=== PATIENT | female | born 1950 | race African-American/Black ===

== ENCOUNTER 2016-09-25 12:32 | Observation (INO) ==
--- NOTE | 2016-09-25 13:10 | Diag Imaging Result Doc PS360 ---
EXAM: HEAD W/O CONTRAST INDICATION: ams COMPARISON: None. FINDINGS: There is no definite acute infarct given the limited sensitivity of CT versus MRI. There is no discrete intracranial mass, mass effect, or intracranial hemorrhage. The surrounding soft tissues and bony structures are essentially unremarkable. IMPRESSION: No evidence of acute intracranial pathology. Electronically signed by Aravind Schneider 09/25/2016 1:08 PM
--- NOTE | 2016-09-25 13:35 | Diag Imaging Result Doc PS360 ---
EXAM: CHEST-2 VIEWS INDICATION: ams TECHNIQUE: 2 views COMPARISON: 03/04/2015 FINDINGS: There is elevation of the left hemidiaphragm similar to previous studies. The lungs are grossly clear. There is no discrete pleural fluid collection or pneumothorax. The cardiomediastinal silhouette and central vasculature are grossly unremarkable. IMPRESSION: No evidence of acute pathology by plain radiograph. Electronically signed by Aravind Schneider 09/25/2016 1:33 PM
[2016-09-25 13:43] LABS: MANUAL DIFF NEEDED? NO
[2016-09-25 13:46] LABS: BASO% 0.8 % (0.0-0.8); EOS# 0.08 X1000 (0.0-0.7); EOS% 1.6 % (0.0-10.0); HEMOGLOBIN 11.9 g/dL (12.0-16.0); LYMPH% 36.8 % (20.5-51.1); MCH 30.4 PG (27-31); MCHC 33.1 g/dL (33-37); MCV 91.8 FL (81-99); MONO% 10.2 % (1.7-9.3); MPV 9.4 FL (7.4-10.4); NEUT% 50.6 % (42.2-75.2); PLT 310 X1000 (130-400); RBC 3.92 XMIL (4.2-5.4)
[2016-09-25 13:54] LABS: INR 1.73; PROTIME 18.8 Seconds (9.2-11.7)
[2016-09-25 14:17] LABS: PTT 49.7 Seconds (22.0-36.0)
[2016-09-25 14:23] LABS: ALBUMIN 3.8 g/dL (3.5-5.0); POTASSIUM 3.9 mmol/L (3.5-5.1); TOTAL BILIRUBIN 0.28 mg/dL (0.20-1.00); TOTAL PROTEIN 6.6 g/dL (6.3-8.3)
[2016-09-25 15:32] LABS: URINE MICRO REVIEW NEEDED? NO; URINE SOURCE CATH
[2016-09-25 15:38] LABS: BILIRUBIN URINE NEGATIVE (NEGATIVE); BLOOD URINE NEGATIVE (NEGATIVE); COLOR STRAW; GLUCOSE URINE NEGATIVE (NEGATIVE); LEUKOCYTES URINE NEGATIVE (NEGATIVE); NITRITE URINE NEGATIVE (NEGATIVE); PH URINE 5.5; PROTEIN URINE NEGATIVE (NEGATIVE); SP GRAVITY URINE 1.006; TURBIDITY URINE CLEAR (CLEAR); UROBILINOGEN URINE NORMAL (NORMAL)
[2016-09-25 15:40] LABS: UR EPITHELIAL CELLS <10 /HPF (<10); URINE BACTERIA NEGATIVE /HPF; URINE RBC <10 /HPF (<10); URINE WBC <10 /HPF (<10)
--- NOTE | 2016-09-25 15:58 | PROVIDER DOCUMENTATION ---
This chart was entered by Franky Ma Scribe, acting as scribe for Anand Price MD. HPI-Neurological Disorder - General Stated Complaint: unresponsive Time Seen by Provider: 09/25/16 12:36 Source: EMS Unable to obtain history due to:: altered Allergies/Adverse Reactions: Patient Allergies Allergy/AdvReac Type Severity Reaction Status Date / Time azithromycin Allergy RASH Verified 07/22/14 17:42 Home Medications: Home Medication List Medication Instructions Recorded Confirmed Last Taken Type Esomeprazole [Nexium Packet] 40 mg PO PRN PRN 03/26/12 09/25/16 09/24/16 History Montelukast [Singulair] 10 mg PO DAILY 03/26/12 09/25/16 09/24/16 History Pioglitazone HCl/Metformin HCl 1 each PO BID 03/26/12 09/25/16 09/25/16 History [Actoplus Met 15 mg-500 mg Tab] Ranitidine HCl [Zantac] 300 mg PO PRN PRN 03/26/12 09/25/16 09/19/16 History SIMVAstatin [Zocor] 40 mg PO QHS 03/26/12 09/25/16 09/24/16 History Fexofenadine [Stefani] 180 mg PO DAILY #0 tablet 03/28/12 09/25/16 09/24/16 Rx Albuterol Sulfate [Ventolin] 5 mg IH Q4H PRN PRN 07/22/14 09/25/16 09/09/16 History Budesonide/Formoterol Fumarate 10.2 gm IH BID PRN PRN 07/22/14 09/25/16 History [Symbicort 160-4.5 Mcg Inhaler] Ergocalciferol (Vitamin D2) 50,000 unit PO BID 07/22/14 09/25/16 09/25/16 History [Vitamin D] Exenatide Microspheres [Bydureon] 2 mg SQ DIRECTED 07/22/14 09/25/16 History Olopatadine 0.2% Oph Solution 1 drop BOTH EYES DAILY 07/22/14 09/25/16 09/25/16 History [Pataday 0.2% Oph Solution] Rivaroxaban [Xarelto] 20 mg PO DAILY 07/22/14 09/25/16 09/24/16 History Spironolact/Hydrochlorothiazid 1 each PO DAILY 07/22/14 09/25/16 09/25/16 History [Aldactazide 25-25 Tablet] - History of Present Illness-Neuro Nature of Presenting Problem: pt presents to the ER after going unresponsive at [facility] while in the choir singing a solo. Stable VS per EMS. Had no vomiting, fever/chills, or chest pain prior to episode. Noted no facial droop, or focal weakness upon arrival but non verbal. She had no seizure type activity. Only looks at you when you call her name. Responds to verbal and noxious stimuli. Awake and back to base line when returns from CT scanner. Had similar episode months ago while just standing watching a parade. FSBS was [employer]. Pt with h/o pulmonary embolism--on xaralto and has not missed a dose. Severity: reports: moderate, severe Onset/Duration: reports: abrupt, just prior to arrival Timing: reports: improving Context: reports: found unresponsive by bystander Character of Altered Mental Status: reports: unresponsive New weakness or altered sensation location:: reports: none Cognitive Baseline: alert, oriented x3 Gait Baseline: walks without assistance Associated Symptoms: denies: dizziness, fever/chills, insomnia, diaphoretic, seizures, slurred speech, vomiting, vision changes Similar Symptoms Previously?: Yes Recently seen or treated by another doctor?: No Review of Systems - Adult - REVIEW OF SYSTEMS - ADULT ROS:: limited per condition Constitutional: denies: chills, fever Eyes: denies: decreased vision, blurred vision, double vision Ears, Nose, Mouth & Throat: reports: no symptoms reported Cardiovascular: denies: chest pain, palpitations Respiratory: denies: dyspnea on exertion, shortness of breath Gastrointestinal: denies: abdominal pain, nausea, vomiting Genitourinary: reports: no symptoms reported Musculoskeletal: reports: no symptoms reported Integumentary: reports: no symptoms reported Neurological: reports: other (unresponsive). denies: dizziness/vertigo, numbness, paresthesia, slurred speech Psychiatric: reports: no symptoms reported Endocrine: reports: no symptoms reported Hematologic/Lymphatic: reports: no symptoms reported Allergic/Immunologic: reports: no symptoms reported All Other Systems: Reviewed and Negative Past History - Adult - PAST MEDICAL HISTORY-ADULT Review of Records: reports: Old Records Reviewed, Nursing Assessment Review, Medications Reviewed Cardiovascular: reports: blood clots (PE), HTN Respiratory: reports: asthma Obstetrical/Gynecological: reports: other (breast ca) Endocrine/Immune: reports: Diabetes, thyroid disorder - PRIOR SURGERIES/PROCEDURES Surgical/Procedure History: reports: appendectomy, cholecystectomy, hysterectomy , , back/neck, other (mastectomy, breast biopsy) - IMMUNIZATION STATUS Childhood Immunizations: See Nurse Assessment Flu Vaccine: See Nurse Assessment - SOCIAL HISTORY Smoking: non-smoker Living Situation: family Physical Exam- Neurological - Physical Exam-Neuro Exam Limited by: Initial arrival to the ER, limited exam-unresponsive was sent to CT Initial Vital Signs Reviewed: Yes (initial VSS) General Appearance: appears well (when returned from CT--complete exam done), alert, no apparent distress Eye Exam: bilateral eye: normal inspection, PERRL, EOMI HENMT: normocephalic/atraumatic, moist mucous membranes, normal ENT inspection Head Injury: no evidence of injury. negative: ecchymosis, swelling, tenderness Neck: non-tender, full range of motion, supple. negative: carotid bruit, lymphadenopathy, meningismus Respiratory: chest non-tender, lungs clear, normal breath sounds Cardiovascular: normal peripheral pulses, regular rate, rhythm, no edema Abdominal Exam: non tender, soft, no organomegaly Lymphatic: no adenopathy. 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 Exam: normal hearing, normal speech, PERRL Motor/Sensory: no motor deficit, no sensory deficit Neurologic: agency sales director II-XII nml as tested, grossly normal, no motor/sensory deficits Integumentary: normal color, normal turgor, warm/dry Psych/Mental Status: normal mood/affect, oriented x 3 - Glascow Coma Scale Best Eye Response: (4) open spontaneously Best Verbal Response: (5) oriented Best Motor Response: (6) obeys commands (GCS-8, was 3, 1 and 4 upon arrival) Total Glascow Score: 15 Progress - PLAN OF CARE/RESULTS Progress/Plan/Lab Results: Vital Signs - 8 hr 09/25/16 13:01 Temperature 97.9 F Pulse Rate 76 Respiratory Rate 18 Blood Pressure 129/76 O2 Sat by Pulse Oximetry 100 Laboratory Results - last 24 hr 09/25/16 09/25/16 09/25/16 13:33 13:33 13:33 WBC 4.89 RBC 3.92 L Hgb 11.9 L Hct 36.0 L MCV 91.8 MCH 30.4 MCHC 33.1 RDW Std Deviation 13.0 Plt Count 310 MPV 9.4 Immature Gran % (Auto) 0.0 Neut % (Auto) 50.6 Lymph % (Auto) 36.8 Humphreys % (Auto) 10.2 H Eos % (Auto) 1.6 Baso % (Auto) 0.8 Immature Gran # (Auto) 0.00 Neut # (Auto) 2.47 Lymph # (Auto) 1.80 Humphreys # (Auto) 0.50 Eos # (Auto) 0.08 Baso # (Auto) 0.04 PT 18.8 H INR 1.73 PTT (Actin FS) 49.7 H Sodium 139 Potassium 3.9 Chloride 103 Carbon Dioxide 22 L Anion Gap 14 BUN 22 Creatinine 1.4 H Estimated GFR/1.73 m2 45 BUN/Creatinine Ratio 16 Glucose 89 Calculated Osmolality 280 Calcium 9.0 Total Bilirubin 0.28 AST 18 ALT 17 Alkaline Phosphatase 67 Creatine Kinase 127 Troponin T Total Protein 6.6 Albumin 3.8 Globulin 2.8 Albumin/Globulin Ratio 1.4 Urine Source Urine Color Urine Turbidity Urine pH Ur Specific [place] Urine Protein Ur Glucose (Stick) Ur Ketones (Stick) Urine Blood Urine Nitrite Urine Bilirubin Urobilinogen Dipstick Urine Leukocytes Urine WBC (Auto) Urine RBC (Auto) U Epithel Cells (Auto) Urine Bacteria (Auto) 09/25/16 09/25/16 13:33 15:26 WBC RBC Hgb Hct MCV MCH MCHC RDW Std Deviation Plt Count MPV Immature Gran % (Auto) Neut % (Auto) Lymph % (Auto) Humphreys % (Auto) Eos % (Auto) Baso % (Auto) Immature Gran # (Auto) Neut # (Auto) Lymph # (Auto) Humphreys # (Auto) Eos # (Auto) Baso # (Auto) PT INR PTT (Actin FS) Sodium Potassium Chloride Carbon Dioxide Anion Gap BUN Creatinine Estimated GFR/1.73 m2 BUN/Creatinine Ratio Glucose Calculated Osmolality Calcium Total Bilirubin AST ALT Alkaline Phosphatase Creatine Kinase Troponin T < 0.010 Total Protein Albumin Globulin Albumin/Globulin Ratio Urine Source CATH Urine Color STRAW Urine Turbidity CLEAR Urine pH 5.5 Ur Specific [place] 1.006 Urine Protein NEGATIVE Ur Glucose (Stick) NEGATIVE Ur Ketones (Stick) NEGATIVE Urine Blood NEGATIVE Urine Nitrite NEGATIVE Urine Bilirubin NEGATIVE Urobilinogen Dipstick NORMAL Urine Leukocytes NEGATIVE Urine WBC (Auto) <10 Urine RBC (Auto) <10 U Epithel Cells (Auto) <10 Urine Bacteria (Auto) NEGATIVE Orders Category Date Time Status CHEST-2 VIEWS [RAD] Stat Exams 09/25/16 12:50 Completed HEAD W/O CONTRAST [CT] Stat Exams 09/25/16 12:37 Completed CBC WITH ELECTRONIC DIFF [HEME] Stat Lab 09/25/16 13:33 Completed CK PROFILE [SP CHEM] Stat Lab 09/25/16 13:33 Completed COMPREHENSIVE METABOLIC PANEL [CHEM] Stat Lab 09/25/16 13:33 Completed PROTIME WITH INR [COAG] Stat Lab 09/25/16 13:33 Completed PTT [COAG] Stat Lab 09/25/16 13:33 Completed TROPONIN T Stat Lab 09/25/16 13:33 Completed UA [URINALYSIS] [URINALYSIS] Stat Lab 09/25/16 15:26 Completed EKG [EKG] Stat Ther 09/25/16 12:50 Ordered Transfer/Admit Order [TRANSFER] Routine Transfer 09/25/16 15:53 Ordered Result Diagrams: 09/25/16 13:33 09/25/16 13:33 - EKG 1 Rate: 66 Rhythm: NSR [place]: normal QRS: normal NM Interval: normal ST Wave: normal - XRAY 1 XRAY Study: Chest Impression: Abnormal XRAY Interpretation: left hemidiaphram - CONSULTS/PCP/HOSPITALIST Notification #1 *Consult/PCP/Hospitalist*: [place] Time Discussed: 15:44 Consult Disposition: Admit Departure - Departure Time of Disposition Decision: 15:45 DIAGNOSIS: Syncope Disposition: ADMITTED INPATIENT 09 Certified Medical Emergency: Emergent Condition: Stable Referrals and Follow-Ups: None,PCP [Clinical Support] - - Critical Care Note This patient required my direct & personal management of CC.: No This chart was documented by the indicated scribe, (Franky Ma, Scribe) and accurately reflects the services I performed and decisions made by me, Anand Price MD, as attested by the provider's signature.
[2016-09-25] MEDS ORDERED: ZANTAC PO PRN (17:27)
[2016-09-25] MEDS ORDERED: SYMBICORT 160/4.5 MICROGM INHALER INH PRN (17:27)
[2016-09-25] MEDS ORDERED: NS 1,000 ML IV SCH (17:30)
[2016-09-25] MEDS ORDERED: PROTONIX IV SCH (17:30)
[2016-09-25] MEDS ORDERED: SODIUM CHLORIDE 0.9% INJ SCH (17:30)
--- NOTE | 2016-09-25 18:10 | HISTORY AND PHYSICAL ---
CHIEF COMPLAINT: Passed out while singing in choir at [employer] around noon time. HISTORY OF PRESENT ILLNESS: She is a 66-year-old female who was brought after she passed out while she was singing in the choir. It last about 15-20 minutes. I did talk to the witnesses. She has been suffering from vertigo, taking meclizine from the family physician, Dr. Day. She was brought in by ambulance to the emergency room. At the time of admission she is confused. There was no seizure activity. No tongue bite. No incontinence of urine or bowels. Patient was neurologically stable. CT head was negative. She is slightly dehydrated. Basically, admitted to the hospital for syncope which was witnessed. PAST MEDICAL HISTORY: 1. Chronic vertigo. 2. Abnormal chest x-ray with elevation of left hemidiaphragm. 3. Type 2 diabetes. 4. History of breast cancer, in remission since 1997. 5. Allergic rhinitis/asthmatic bronchitis. 6. Hyperlipidemia. 7. History of pulmonary embolism. 8. Vitamin D deficiency. PAST SURGICAL HISTORY: Bilateral breast reduction, lumpectomy in 1997, cervical fusion, hysterectomy, appendectomy, cholecystectomy, tonsillectomy, lumbar spine surgery in 2010. MEDICATIONS: Reported Actoplus Met 15/500 p.o. b.i.d., Prilosec 40 daily, Zantac at bedtime, Singulair 10 daily, Zocor 40 daily, Stefani 180 daily, Pataday 1 drop both eyes daily, Symbicort 160/4.5 b.i.d., Ventolin as needed, Vitamin D 53659 once a week, Xarelto 20 mg daily, Aldactazide 25/25 daily, Bydureon subcutaneously 2 mg once a week. ALLERGIES: Reported, Zithromax, angiotensin receptor blockers due to angioedema in 2011. IMMUNIZATIONS: Pneumonia vaccine 2013. HEALTH MAINTENANCE: Mammography last year. Colonoscopy by Dr. Carver. SOCIAL HISTORY: She lives in [place]. Disabled. 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 No smoking. No alcohol. FAMILY HISTORY: Mom of breast cancer. Brother and father had prostate cancer. Sister had breast cancer. REVIEW OF SYSTEMS: HEENT: No headache. No vision problem. Dizziness/ vertigo. No earache. No sore throat. Neck: No chronic neck pain, with C-spine fusion. No goiters. No carotid bruits. Cardiopulmonary: No chest pain, shortness of breath, PND, orthopnea. GI: History of acid reflux symptoms. No bleeding per rectum. Appendix and gallbladder were taken out. : No history of hesitancy, frequency, hematuria, dysuria. No swelling of legs. No joint pains. Chronic neck back pain. No claudication symptoms. Neurologic: No seizures, dizziness, vertigo present. No weakness noted. PHYSICAL EXAMINATION: VITAL SIGNS: Afebrile, 5 feet, 160 pounds, 100% oxygen on 2 L, pulse is 76. Hemodynamics were stable. HEENT: Atraumatic, normocephalic. Pupils equal, reactive to light. No anemia. No cyanosis. No jaundice. No nystagmus noted. Tongue is in midline. Facial nerve is intact. NECK: Supple. No neck rigidity. JVD is not elevated. No carotid bruit. No goiter. CHEST: Bilateral air entry. HEART: Sounds are regular. No murmurs. BREAST: Exam deferred. ABDOMEN: Belly is soft, nontender. Good bowel sounds. No masses. No peritonitis. RECTAL: Exam deferred. EXTREMITIES: No peripheral edema, cyanosis, clubbing. No signs of gangrene. NEUROLOGIC: Alert and oriented to time, place, and person. Motor 5/5 in all extremities. Sensory is intact. No nystagmus. Cranial nerves intact. No cerebellar signs. No obvious deficits noted. INVESTIGATIONS: Chest x-ray: Elevation of the left hemidiaphragm which is chronic. No evidence of acute pathology noted. Prior C-spine surgery noted. CT head: No evidence of acute intracranial pathology. EKG is pending. CBC: White cell count 4.8, hematocrit 36, platelets 310,000. PT 18, INR 1.7. SMA 7: Creatinine is 1.4. Liver function tests were normal. Cardiac enzymes were normal. Urinalysis: No blood, clear. ASSESSMENT AND PLAN: This is a 66-year-old female admitted to the hospital with syncope for 15 minutes, documented. PLAN: 1. Rule out carotid disease. Continue manager monitoring. Rule out cardiac arrhythmia. Check EEG in the morning. Orthostatic blood pressure. IV fluids. 2. Type 2 diabetes. On Actos plus metformin, on sliding scale with insulin coverage. 3. Vitamin D deficiency, once a week. 4. History of abnormal x-ray with elevation of left hemidiaphragm. Continue on IV Protonix. 5. Hyperlipidemia. On Zocor. 6. History of pulmonary embolism. On Xarelto. 7. 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 8. Chronic allergies with asthmatic bronchitis. Continue on Stefani, Singulair , and inhalers. 9. Dr. Day is going to follow up. Discussed with the patient and the family members the plan of care. cc: Denver [place] MD MTDD
[2016-09-25] MEDS ORDERED: ZOCOR PO SCH (21:00)
[2016-09-25] MEDS ORDERED: GLUCOPHAGE PO SCH (21:00)
[2016-09-25] MEDS ORDERED: ACTOS PO SCH (21:00)
[2016-09-25] MEDS ORDERED: VITAMIN D PO SCH (21:00)
[2016-09-25 23:54] VITALS: BP 127/64
[2016-09-26] MEDS: HUMALOG SUBQ SCH ×2 (01:33→09:28)
--- NOTE | 2016-09-26 07:07 | EKG Report ---
Test Performed on : 09/26/2016 06:33:57 AM Test Reason : cp Blood Pressure : / mmHG Vent. Rate : 053 BPM Atrial Rate : 053 BPM P-R Int : 228 ms QRS Dur : 062 ms QT Int : 462 ms P-R-T Axes : 048 -13 052 degrees QTc Int : 433 ms Sinus bradycardia. with 1st degree AV block. Otherwise normal ECG When compared with ECG of 25-SEP-2016 12:49, (Unconfirmed) No significant change was found Confirmed by Giuseppe DIOR, Charlie Monae ([id number]) on 09/26/2016 7:14:44 AM
--- NOTE | 2016-09-26 07:53 | EKG Report ---
Test Performed on : 09/25/2016 12:49:51 PM Test Reason : No Order in [place] Blood Pressure : / mmHG Vent. Rate : 066 BPM Atrial Rate : 066 BPM P-R Int : 208 ms QRS Dur : 058 ms QT Int : 436 ms P-R-T Axes : 063 -12 023 degrees QTc Int : 457 ms Normal sinus rhythm. Low voltage QRS Borderline ECG When compared with ECG of 07-DEC-2011 12:10, No significant change was found Unconfirmed Result
[2016-09-26 07:55] LABS: HEMATOCRIT 34.6 % (37.0-47.0); HEMOGLOBIN 11.3 g/dL (12.0-16.0); MCH 30.7 PG (27-31); MCHC 32.7 g/dL (33-37); RBC 3.68 XMIL (4.2-5.4)
[2016-09-26 08:20] LABS: CALCIUM 8.8 mg/dL (8.8-10.2); POTASSIUM 4.5 mmol/L (3.5-5.1)
[2016-09-26 08:28] LABS: HEMOGLOBIN A1C 5.7 % (4.8-6.0)
[2016-09-26] MEDS ORDERED: XARELTO PO SCH (09:00)
[2016-09-26] MEDS ORDERED: ALLEGRA PO SCH (09:00)
[2016-09-26] MEDS ORDERED: SINGULAIR PO SCH (09:00)
[2016-09-26] MEDS ORDERED: ALDACTAZIDE 25/25 PO SCH (09:00)
[2016-09-26] MEDS ORDERED: PATADAY 0.2% OPH SOLUTION BOTH EYES SCH (09:00)
--- NOTE | 2016-09-26 09:23 | PROGRESS NOTE ---
DATE: 09/26/2016 SUBJECTIVE: Patient relates she was singing a solo in the [place] [employer] yesterday when she had a syncopal event. Apparently, she had a dropout spell where she did not fall and hurt herself but some latter day members caught her before she fell completely. She laid on the floor for about 20 minutes, according to her report. The patient has had a couple of other episodes. She is followed by Dr. 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 The patient also has been followed by Dr. Aravind Chowdhury, neurosurgery, regarding bulging disks in her neck that are giving her left upper extremity radiculopathy, with plans being made for surgery to correct this. OBJECTIVE: Vital Signs: Afebrile, pulse 58, blood pressure 127/64, O2 saturation on room air 97%. Brought telemetry strips which show an episode of third-degree heart block at 7:53 this morning with symptomatology but normal blood pressures at that time. CV: RRR. Lungs: CTA currently. Extremities: No edema. Neurologic: Cranial nerves are intact. No focal deficits. Lab Data: Shows white count of 5.17, hemoglobin 11.3, platelets 284,000. INR 1.73, PTT 49.7. Sodium 140, potassium 4.5, chloride 106, CO2 23, BUN 22, creatinine 1.3, glucose 89, calcium 8.8. Troponin level less than 0.01 x2. ProBNP 282. Urinalysis negative for blood on dipstick and otherwise negative. CT head done yesterday afternoon showed negative. Chest x-ray shows chronic elevation of the left hemidiaphragm, otherwise negative. ASSESSMENT: 1. Syncope, thought related to #2. 2. Third-degree heart block. 3. History of pulmonary thromboembolisms, on chronic Xarelto therapy. 4. Left upper extremity radiculopathy with cervical bulging disk. Followed by Dr. Aravind Chowdhury. 5. Chronic vertigo. 6. History of breast cancer, remote. 7. Type 2 diabetes mellitus. 8. Hyperlipidemia. 9. Vitamin D deficiency. PLAN: At this time, we will consult with cardiology as she is followed by Dr. Cuevas out of [place] [facility]. We will monitor her blood sugars. Continue IVF and follow the patient clinically. She is also to have an EEG and carotid Dopplers but I believe her problem is going to be the third-degree heart block and she may require pacemaker placement. cc: Manny Day MD
[2016-09-26] MEDS ORDERED: ZOFRAN IV PRN (10:58)
--- NOTE | 2016-09-26 11:46 | CONSULTATION ---
DATE OF CONSULTATION: 09/26/2016 REASON FOR CONSULTATION: Cardiology was consulted for abnormal telemetry and syncope. HISTORY: Ms. Mynor Beckwith is a 66-year-old -[place] lady who was brought in by EMT. She passed out while singing in the choir. It lasted for about 15-20 minutes. It was witnessed syncope. Brought by ambulance to the emergency room. Electrocardiogram in the emergency room revealed normal sinus rhythm with 1st-degree AV block. Subsequently, on telemetry, she had AV dissociation with heart rate in the 30s on 2 to 3 occasions. As far as history is concerned, she does not complain of chest pain or palpitations. She has had syncope at least once a month and, over the last 6 months, she has had 5 episodes of joshua syncope. She is not on any medications which would decrease her heart rate. She had an EEG done. CT scan was negative. EEG was unremarkable, and repeat electrocardiograms revealed only normal sinus rhythm with 1st-degree AV block. She is routinely followed by Dr. Colbert in our office at [facility]. Her stress test was unremarkable a couple of years back. An echocardiogram revealed preserved left ventricular systolic function. REVIEW OF SYSTEMS: A 14-point review of systems was done GI System: There is no history of nausea. There is no history of hematemesis or melena. Central Nervous System: No focal weakness to suggest a CVA or TIA. Genitourinary System: There is no dysuria or hematuria. Respiratory System: There is no history of cough, expectoration, hemoptysis. There is no history of fevers or chills. PAST MEDICAL HISTORY: 1. Vertigo. 2. Syncope. 3. Diabetes. 4. History of breast cancer, in remission since 1997. 5. Hyperlipidemia. 6. History of pulmonary embolism. 7. Bilateral breast reduction. 8. Lumpectomy. 9. Cervical fusion. 10. Hysterectomy. 11. Appendectomy. 12. Cholecystectomy. 13. Tonsillectomy. 14. Lumbar spine surgery in 2000. HOME MEDICATIONS: 1. Active plus Met 15/500 p.o. b.i.d. 2. Prilosec 40. 3. Zantac. 4. Zocor 40. 5. Pataday eye drops. 6. Symbicort 164.5 twice daily. 7. Ventolin as needed. 8. Vitamin D. 9. Xarelto 20. 10. Aldactazide 25/25. 11. subcutaneously 2 mg. ALLERGIES: She is allergic to Zithromax, lisinopril causing angioedema in 2011. SOCIAL HISTORY: She does not smoke. There is no history of alcohol abuse. PHYSICAL EXAMINATION: Vital Signs: Blood pressure was 127/64. Neck: Normal jugular venous pressure. There is no thyromegaly. No carotid bruit. Heart: First and second heart sounds heard. There is no S3 gallop. Respiratory System: Normal air entry. There are no crepitations or rhonchi. Abdomen: Soft, nontender. There was no guarding or rigidity. Bowel sounds were heard. Central nervous system: Alert. She was moving all 4 extremities. Detailed central nervous system examination not performed. LABORATORY EXAMINATION: Sodium 140, potassium 4.5. BUN 22, creatinine 1.3. Cardiac enzymes were negative. Hemoglobin 11.3, hematocrit 34.6. Hemoglobin 11.3, hematocrit 34, platelet count 284,000. White count 5. DIAGNOSTICS: CT scan of the head was unremarkable. EEG and carotid Dopplers reports were unremarkable. ASSESSMENT AND PLAN: Ms. Prabha Beckwith is a 66-year-old -[place] lady with history of 1. Vertigo. 2. Diabetes. 3. Pulmonary embolism in the past. 4. Asthma. 5. Hypertension. She is admitted with syncope while [facility] [employer] which was witnessed, and her blood sugars at that time were normal. She has had 5 episodes of syncope in the last 6 months which she states her electrocardiograms were normal, however, telemetry revealed AV dissociation with heart rate in the 30s that was associated with symptoms of dizziness. Given this, I recommended that she be transferred to [facility] for consideration of a permanent pacemaker. The patient is willing to be transferred and undergo the procedure. Risks and benefits were explained. For hypertension, blood pressure is stable. Diabetes: Blood sugars are under control. I have not made any changes. Thank you for the consult. cc: MD Manny Jaquez MD
--- NOTE | 2016-09-26 14:54 | EKG Report ---
Test Performed on : 09/26/2016 10:52:14 AM Test Reason : 3rd degree heartblock Blood Pressure : / mmHG Vent. Rate : 052 BPM Atrial Rate : 052 BPM P-R Int : 226 ms QRS Dur : 066 ms QT Int : 456 ms P-R-T Axes : 035 -07 034 degrees QTc Int : 424 ms Sinus bradycardia. with 1st degree AV block. Otherwise normal ECG When compared with ECG of 26-SEP-2016 06:33, No significant change was found Confirmed by Giuseppe DIOR, Charlie Monae ([id number]) on 09/27/2016 6:20:34 PM
--- NOTE | 2016-09-26 15:32 | ECHO REPORT ---
ORDER DATE: 09/26/2016 ECHOCARDIOGRAM: MEASUREMENTS: Left ventricular end-diastolic diameter 4.1, end systolic diameter 2.3, septal thickness 1.3, posterior wall thickness 1.2, left atrium 3.2, aortic root 3.3. SUMMARY: 1. Fair quality study. 2. Aortic valve is trileaflet and opens normally on 2-dimensional images. Mitral, tricuspid, and pulmonic valves are without structural abnormality with very mild mitral regurgitation, very mild tricuspid regurgitation, and mild pulmonic insufficiency. Estimated systolic PA pressure by Doppler is 35 to 40 mmHg. Aortic root is normal in size. 3. Normal left ventricular chamber size with mild concentric left hypertrophy suggested. Estimated left ventricular ejection fraction appears to be at least 60%. No regional wall motion abnormalities are evident. Mild left atrial enlargement is suggested on 2-D images. Right atrium and right ventricle are normal in size with normal right ventricular systolic function. 4. No pericardial effusion. 5. Inferior vena cava not well demonstrated. CONCLUSIONS: 1. Very mild mitral regurgitation. 2. Very mild tricuspid regurgitation with estimated systolic PA pressure 35-40 mmHg. 3. Mild concentric left hypertrophy with estimated left ventricular ejection fraction at least 60%. 4. Mild left atrial enlargement. cc: MD Marzena Petersen PA Stephen W. Harbin, MD
--- NOTE | 2016-09-26 17:08 | EEG REPORT ---
DATE: 09/26/2016 BASIC INFORMATION: REFERRING PHYSICIAN: Dr. Houston. EEG NUMBER: [id number]. CERTIFIED FRAUD EXAMINER: Germania Nazario. BACKGROUND INFORMATION: Technique: A digitally recorded EEG is obtained with 1 additional channel for EKG. HISTORY OF PRESENT ILLNESS: A 66-year-old female admitted after a witnessed syncopal event. An EEG is ordered to detect evidence of possible seizures. MEDICATIONS: Include Actos, Aldactazide, Stefani, Glucophage, insulin, Protonix , Symbicort, Singulair, Xarelto, Zantac, Zocor. EEG FINDINGS: A well-formed 11 Hz posterior dominant alpha rhythm is seen symmetrically in the occipital regions and attenuates with eye opening. At maximal alertness the anterior background consists of alpha and beta frequencies. No focal slowing is noted. No epileptiform discharges and no seizures are noted. Hyperventilation was not performed. Photic stimulation induced a normal photic driving response at multiple frequencies. The patient has periods of drowsiness but stage II sleep is not seen. The EKG demonstrates irregular R-R interval with 2 + second pauses at the end of the study. IMPRESSION AND RECOMMENDATIONS: Normal awake and drowsy routine EEG. Of note, a normal EEG does not rule out epilepsy. Of note, the EKG demonstrated irregular R-R interval and 2+ second pauses at the end of the study. Clinical correlation is advised. cc: MD Denver Wick MD Stephen W. Harbin, MD MTDD
--- NOTE | 2016-09-28 08:39 | Carotid Study ---
DATE: 09/26/2016 PROCEDURE: Carotid duplex imaging. REFERRING PHYSICIAN: Denver Houston MD. INTERPRETING PHYSICIAN: Kev Moore MD. TECH: [place]. INDICATIONS: Syncope. OBSERVED DATA RIGHT LEFT Brachial Blood Pressure Carotid Pulse Bruits: Carotid/Sub DIAGRAM OF ULTRASOUND IMAGING R L RIGHT INT EXT INT EXT LEFT Sherif (cm/s) Sherif (cm/s) Subclavian 77/0 Subclavian 80/0 CCA Proximal 43/11 CCA Proximal 59/9 CCA Distal 51/15 CCA Distal 51/12 Bulb 51/15 Bulb 37/10 ICA Proximal 35/10 ICA Proximal 50/16 ICA Mid 34/13 ICA Mid 40/13 ICA Distal 60/18 ICA Distal 71/29 ECA 37/5 ECA 36/3 Vertebral 33/9 Vertebral 63/24 ICA/CCA Ratio 1.2 ICA/CCA Ratio 1.2 % Stenosis 0-39 % Stenosis 0-39 FINDINGS: Very minimal atherosclerotic disease in the carotid systems bilaterally. No ulcerative plaques or significant stenoses are present. There is antegrade vertebral flow bilaterally. This is an unremarkable carotid imaging study. cc: MD Denver Padron MD Stephen W. Harbin, MD
[2016-10-02] MEDS ORDERED: VITAMIN D PO SCH (09:00)
== END 2016-09-26 13:40 | disposition short-term general hospital (02) ==
LOC: SUPCPDRO → ED 12:32 → 4N 16:08 → INTOOBSV 16:08
PROVIDERS: ADMIT Family Medicine; ATTEND Family Medicine

== ENCOUNTER 2018-07-10 15:31 | Inpatient (IN) ==
--- NOTE | 2018-07-10 15:57 | Diag Imaging Result Doc PS360 ---
EXAM: CHEST-2 VIEWS HISTORY: sob TECHNIQUE: Chest two views COMPARISON: 04/25/2017 FINDINGS: The lungs are well expanded. The heart is not enlarged. The vessels are not distended. There are no infiltrates. No pleural effusions. The left hemidiaphragm is elevated. IMPRESSION: No acute abnormality. Electronically signed by Andre Woodard 07/10/2018 3:55 PM
[2018-07-10] MEDS ORDERED: DUONEB (A & A) INH ONE ×2 (16:34→18:41)
[2018-07-10] MEDS ORDERED: SOLU-MEDROL IV ONE (16:34)
[2018-07-10 16:54] LABS: BASO# 0.02 X1000 (0.0-0.2); BASO% 0.4 % (0.0-0.8); EOS# 0.07 X1000 (0.0-0.7); EOS% 1.3 % (0.0-10.0); HEMATOCRIT 37.8 % (37.0-47.0); HEMOGLOBIN 12.2 g/dL (12.0-16.0); LYMPH# 1.83 X1000 (1.2-3.4); LYMPH% 33.8 % (20.5-51.1); MCH 28.4 PG (27-31); MCHC 32.3 g/dL (33-37); MCV 87.9 FL (81-99); MONO# 0.46 X1000 (0.11-0.59); MONO% 8.5 % (1.7-9.3); MPV 9.7 FL (7.4-10.4); NEUT# 3.03 X1000 (1.4-6.5); PLT 327 X1000 (130-400); WBC 5.41 X1000 (4.8-10.8)
[2018-07-10 17:12] LABS: ALB/GLOB RATIO 1.4; ALBUMIN 3.9 g/dL (3.5-5.0); C REACTIVE PROT QUANT 1.89 mg/L (0.00-5.00); CALCIUM 9.3 mg/dL (8.8-10.2); CREATININE 1.4 mg/dL (0.5-0.9); POTASSIUM 4.4 mmol/L (3.5-5.1); TOTAL BILIRUBIN 0.18 mg/dL (0.20-1.00); TOTAL PROTEIN 6.6 g/dL (6.3-8.3)
[2018-07-10] MEDS ORDERED: DOXYCYCLINE PO ONE (18:40)
--- NOTE | 2018-07-10 18:46 | PROVIDER DOCUMENTATION ---
This chart was entered by Adal Ortiz Scribe, acting as scribe for Bao Fuentes MD. HPI-Respiratory General - General Chief Complaint: Cough Stated Complaint: SOB --DR WILLIAMSON STAFF BROUGHT PT DOWN Time Seen by Provider: 07/10/18 16:16 Source: patient Allergies/Adverse Reactions: Patient Allergies Allergy/AdvReac Type Severity Reaction Status Date / Time azithromycin Allergy Intermediate RASH Verified 07/10/18 16:05 [From Zithromax Z-Dereck] latex Allergy Intermediate RASH Verified 07/10/18 16:05 BANDAIDES Allergy RASH Uncoded 07/10/18 16:05 Home Medications: Home Medication List Medication Instructions Recorded Confirmed Last Taken Type Montelukast [Singulair] 10 mg PO DAILY 03/26/12 05/31/17 05/30/17 09:00 History Fexofenadine [Stefani] 180 mg PO DAILY #0 tablet 03/28/12 05/31/17 05/30/17 09:00 Rx Budesonide/Formoterol Fumarate 2 puff IH DAILY 07/22/14 05/31/17 05/30/17 09:00 History [Symbicort 160-4.5 Mcg Inhaler] Ergocalciferol (Vitamin D2) 50,000 unit PO DIRECTED 07/22/14 05/31/17 05/29/17 09:00 History [Vitamin D] Olopatadine 0.2% Oph Solution 1 drop BOTH EYES BID 07/22/14 05/31/17 05/29/17 21:00 History [Pataday 0.2% Oph Solution] Spironolact/Hydrochlorothiazid 1 each PO DAILY 07/22/14 05/31/17 05/30/17 09:00 History [Aldactazide 25-25 Tablet] Albuterol Sulfate [Albuterol 2 puff IH Q4H PRN PRN 09/26/16 05/31/17 05/30/17 09:00 History Sulfate Hfa] Dulaglutide [Trulicity] 0.75 mg SQ DIRECTED 09/26/16 05/31/17 05/29/17 09:00 History Esomeprazole [Nexium] 40 mg PO DAILY 09/26/16 05/31/17 05/30/17 09:00 History Losartan Potassium 100 mg PO DAILY 09/26/16 05/31/17 05/30/17 09:00 History Meclizine HCl [Antivert] 25 mg PO TID PRN 09/26/16 05/31/17 05/29/17 09:00 History Metformin HCl [Metformin HCl ER] 850 mg PO DAILY 09/26/16 05/31/17 05/30/17 09:00 History [place]-3/Dha/Epa/Fish Oil [[place] 3 1 cap PO DAILY 09/26/16 05/31/17 05/30/17 09: 00 History 500 Softgel] Oxybutynin E.r. [Ditropan Xl] 5 mg PO QHS 09/26/16 05/31/17 05/29/17 21:00 History Rivaroxaban [Xarelto] 20 mg PO DAILY 09/26/16 05/29/17 05/28/17 History - History of Present Illness-Resp Nature of Presenting Problem: Pt is a 67 y/o F who c/o fof a cough and SOB for 5 days. SHe reports a yellow productive cough. Denies fever and chest pain. She reports a hx of PE. Quality of Pain: reports: none Severity in ED: reports: moderate Onset/Duration: reports: 5 days ago Timing: reports: still present Exposure: reports: unknown cause Cough Quality/Degree: reports: productive cough Episode Frequency: no prior episodes Current Respiratory Medication Therapy: Initiated none Modifying Factors: improves with: nothing Associated Symptoms: reports: cough, shortness of breath. denies: fever/chills, heart racing, hyperventilating, lightheadedness, nasal congestion, nasal drainage, sore throat, wheezing Similar Symptoms Previously?: No Recently seen or treated by another doctor?: No Review of Systems - Adult - REVIEW OF SYSTEMS - ADULT Constitutional: denies: chills, fever Eyes: reports: no symptoms reported Ears, Nose, Mouth & Throat: reports: no symptoms reported Cardiovascular: denies: chest pain, edema, palpitations Respiratory: reports: cough, shortness of breath. denies: wheezing Gastrointestinal: denies: abdominal pain, nausea, vomiting Genitourinary: denies: dysuria, discharge Musculoskeletal: denies: back pain, neck pain Integumentary: reports: no symptoms reported Neurological: reports: no symptoms reported Psychiatric: reports: no symptoms reported Endocrine: reports: no symptoms reported Hematologic/Lymphatic: reports: no symptoms reported Allergic/Immunologic: reports: no symptoms reported All Other Systems: Reviewed and Negative Past History - Adult - PAST MEDICAL HISTORY-ADULT Review of Records: reports: Old Records Reviewed, Nursing Assessment Review, Medications Reviewed Cardiovascular: reports: blood clots (PE), HTN Respiratory: reports: asthma Obstetrical/Gynecological: reports: other (breast ca) Endocrine/Immune: reports: Diabetes, thyroid disorder - PRIOR SURGERIES/PROCEDURES Surgical/Procedure History: reports: appendectomy, cholecystectomy, hysterectomy , , back/neck, other (mastectomy, breast biopsy) - IMMUNIZATION STATUS Childhood Immunizations: See Nurse Assessment Flu Vaccine: See Nurse Assessment - SOCIAL HISTORY Smoking: non-smoker Living Situation: family Physical Exam-General - PHYSICAL EXAM-ADULT Initial Vital Signs Reviewed: Yes - CONSTITUTIONAL General Appearance: appears well, alert, no apparent distress - EYES Eyes: PERRL/EOMI, pink conjunctivae - HEAD, EARS, NOSE, MOUTH & THROAT HENMT: moist mucous membranes, normal ENT inspection, pharynx normal - NECK Neck: non-tender, full range of motion, supple, normal inspection - RESPIRATORY Respiratory: accessory muscle use, increased rate. negative: normal breath sounds (shallow breath sounds, poor air entry) - CARDIOVASCULAR Cardiovascular: normal peripheral pulses, regular rate, rhythm, no edema - GASTROINTESTINAL (ABDOMEN) Abdominal Exam: normal bowel sounds, non tender, soft - MUSCULOSKELETAL Back Exam: normal inspection, no CVA tenderness, no vertebral tenderness Extremity: normal range of motion, non-tender, normal gait, normal inspection, no pedal edema - SKIN Integumentary: normal color, normal turgor, warm/dry - NEUROLOGIC Neurologic: grossly normal, no motor/sensory deficits - PSYCHIATRIC Psych/Mental Status: normal mood/affect, normal thought content, normal thought process, oriented x 3 - HEART Score HEART Score: History: Slightly Suspicious HEART Score: ECG: Normal HEART Score: Age: > or = 65 Years HEART Score: Risk Factors for Atherosclerotic Disease: 1 or 2 Risk Factors HEART Score: Troponin: < or = Normal Limit (3) Total HEART Score:: 3 Progress - PLAN OF CARE/RESULTS Progress/Plan/Lab Results: Vital Signs - 8 hr 07/10/18 15:33 07/10/18 16:55 Temperature 98.1 F Pulse Rate 81 60 Respiratory Rate 24 42 H Blood Pressure 152/79 O2 Sat by Pulse Oximetry 100 98 Laboratory Results - last 24 hr 07/10/18 07/10/18 07/10/18 16:15 16:15 16:15 WBC 5.41 RBC 4.30 Hgb 12.2 Hct 37.8 MCV 87.9 MCH 28.4 MCHC 32.3 L RDW Std Deviation 13.0 Plt Count 327 MPV 9.7 Immature Gran % (Auto) 0.0 Neut % (Auto) 56.0 Lymph % (Auto) 33.8 [place] % (Auto) 8.5 Eos % (Auto) 1.3 Baso % (Auto) 0.4 Immature Gran # (Auto) 0.00 Neut # (Auto) 3.03 Lymph # (Auto) 1.83 [place] # (Auto) 0.46 Eos # (Auto) 0.07 Baso # (Auto) 0.02 D-Dimer, Quantitative < 0.27 Sodium 137 Potassium 4.4 Chloride 100 Carbon Dioxide 25 Anion Gap 12 BUN 22 Creatinine 1.4 H Estimated GFR/1.73 m2 45 BUN/Creatinine Ratio 16 Glucose 97 Calculated Osmolality 277 Calcium 9.3 Total Bilirubin 0.18 L AST 21 ALT 10 Alkaline Phosphatase 73 Creatine Kinase 115 Troponin T C-Reactive Prot, Quant 1.89 Total Protein 6.6 Albumin 3.9 Globulin 2.7 Albumin/Globulin Ratio 1.4 07/10/18 16:15 WBC RBC Hgb Hct MCV MCH MCHC RDW Std Deviation Plt Count MPV Immature Gran % (Auto) Neut % (Auto) Lymph % (Auto) [place] % (Auto) Eos % (Auto) Baso % (Auto) Immature Gran # (Auto) Neut # (Auto) Lymph # (Auto) [place] # (Auto) Eos # (Auto) Baso # (Auto) D-Dimer, Quantitative Sodium Potassium Chloride Carbon Dioxide Anion Gap BUN Creatinine Estimated GFR/1.73 m2 BUN/Creatinine Ratio Glucose Calculated Osmolality Calcium Total Bilirubin AST ALT Alkaline Phosphatase Creatine Kinase Troponin T < 0.010 C-Reactive Prot, Quant Total Protein Albumin Globulin Albumin/Globulin Ratio Orders Category Date Time Status CHEST-2 VIEWS [RAD] Stat Exams 07/10/18 15:39 Completed C REACTIVE PROT QUANT [CHEM] Stat Lab 07/10/18 16:15 Completed CBC WITH ELECTRONIC DIFF [HEME] Stat Lab 07/10/18 16:15 Completed CK PROFILE [SP CHEM] Stat Lab 07/10/18 16:15 Completed COMPREHENSIVE METABOLIC PANEL [CHEM] Stat Lab 07/10/18 16:15 Completed D-DIMER [COAG] Stat Lab 07/10/18 16:15 Completed TROPONIN T Stat Lab 07/10/18 16:15 Completed Albuterol 2.5MG/Ipratrop 0.5MG [Duoneb (A & A)] Med 07/10/18 16:34 Discontinued 3 ml INH NOW ONE Albuterol 2.5MG/Ipratrop 0.5MG [Duoneb (A & A)] Med 07/10/18 18:41 Discontinued 3 ml INH NOW ONE Doxycycline Med 07/10/18 18:40 Discontinued 100 mg PO NOW ONE Methylprednisolone Sod Succ [Solu-Medrol] Med 07/10/18 16:34 Discontinued 60 mg IV NOW ONE Aerosol Treatments Routine Oth 07/10/18 16:35 Completed Aerosol Treatments Routine Oth 07/10/18 18:41 Active Aerosol Treatments Stat Oth 07/10/18 16:35 Completed Aerosol Treatments Stat Oth 07/10/18 18:41 Active EKG [EKG] Stat Ther 07/10/18 16:35 Ordered A/P: Asthma exacerbation. labs show no wbc but pt complains of yellow productive cough. Still having tachypnea after steroids and Neb Tx. D dimer neg. EKG wnl. CXR wnl. will admit as pt has not responded well to Tx Result Diagrams: 07/10/18 16:15 07/10/18 16:15 - EKG 1 Time of EKG reading by physician:: 16:48 EKG Read and Signed by:: Bao Fuentes EKG Interpretation (*Must complete 3 of following elements*): Abnormal Rate: 61 Rhythm: Sinus with 1st AV block Comments: otherwise normal ECG - XRAY 1 XRAY Study: Chest Impression: Normal (EXAM: CHEST-2 VIEWS HISTORY: sob TECHNIQUE: Chest two views COMPARISON: 04/25/2017 FINDINGS: The lungs are well expanded. The heart is not enlarged. The vessels are not distended. There are no infiltrates. No pleural effusions. The left hemidiaphragm is elevated. IMPRESSION: No acute abnormality. Electronically signed by Andre Woodard 07/10/2018 3:55 PM) - CONSULTS/PCP/HOSPITALIST Notification #1 *Consult/PCP/Hospitalist*: [email or web address] Time Discussed: 18:46 Consult Disposition: Admit Departure - Departure Date of Disposition Decision: 07/10/18 Time of Disposition Decision: 18:46 DIAGNOSIS: Asthma exacerbation Disposition: ADMITTED INPATIENT 09 Certified Medical Emergency: Emergent Condition: Stable Referrals and Follow-Ups: Pb Williamson MD [AFFILIATE PROVIDER] - - Critical Care Note This patient required my direct & personal management of CC.: No Attestation - Physician/ TAWNY Attestation Patient care was provided by Advanced Practice Provider:: No The physician spent face to face time with patient:: Yes Advanced Practice Provider documentation review:: Supervising physician onsite and consulted in the evaluation and care of this patient. The physician did have a face to face encounter with the patient. This chart was documented by the indicated scribe, (Adal Ortiz Scribe) and accurately reflects the services I performed and decisions made by me, Bao Fuentes MD, as attested by the provider's signature.
[2018-07-10] MEDS ORDERED: NS 1,000 ML IV SCH (20:30)
[2018-07-10] MEDS ORDERED: HUMULIN R SUBQ SCH (21:00)
--- NOTE | 2018-07-10 21:23 | HISTORY AND PHYSICAL ---
This is a patient of Dr. Day, admitted to Dr. Lo by Dr. Lo in Dr. Day's absence. CHIEF COMPLAINT: Shortness of breath and cough for 5 days. The patient has had a yellow productive cough but denies any fever. She has a history of pulmonary a embolism. This was checked in the emergency room, and none was found. PAST MEDICAL HISTORY: Glaucoma, diabetes mellitus, vertigo, stress incontinence, on Xarelto, peripheral vascular disease, allergic rhinitis and hypertension. PAST SURGICAL HISTORY: The patient's past surgeries include appendectomy, cholecystectomy, bilateral cataract surgery, fem-fem bypass on the left, and left foot surgery. The patient also did have breast cancer and had bilateral mastectomy. ALLERGIES: The patient did not remember any allergies but we have listed elsewhere that she is allergic to Zithromax, latex and Band-Aids. She got a rash with each one of these. HOME MEDICATIONS: Include Singulair 10 mg daily, Stefani 180 mg daily, Symbicort 160/4.5 inhaler 2 puffs daily, vitamin D2 at 50,000 units p.o. as directed, Olopatadine 0.2% solution for ophthalmology (which is Pataday 0.2), 1 drop to both eyes b.i.d. She is on spironolactone/hydrochlorothiazide (or Aldactazide) or outside 25/25, 1 p.o. daily. She has an albuterol MDI at 2 puffs every 4 hours as needed for wheezing. She is on Trulicity 0.75 mg subcutaneously every week, Nexium 40 mg daily, losartan 100 mg p.o. daily, meclizine 25 mg p.o. t.i.d. p.r.n. dizziness, metformin 850 mg daily. She takes [place]-3 soft gel 500 mg daily, Ditropan XL 5 mg at bedtime and Xarelto 20 mg daily. FAMILY HISTORY: She has 2 sons in good health. SOCIAL HISTORY: Has never used alcohol or tobacco. 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 REVIEW OF SYSTEMS: Neurological: Denies headaches, seizures, visual problems, hearing problems. Pulmonary: She has had a cough with wheezing. See present illness. Cardiovascular: Denies chest pain, heart palpitations, PND, or orthopnea. GI: Denies hematochezia, hematemesis, melena, constipation, diarrhea. : Denies any difficulty with urination at this time. She has had stress incontinence and takes medication for it. Endocrine: Does have diabetes. Musculoskeletal: Denies any injuries or arthritis. PHYSICAL EXAMINATION: VITAL SIGNS: Temperature is 98.1 degrees Fahrenheit. Pulse is 81 and regular, respirations 42, blood pressure 152/79. O2 saturation was 100%. HEENT: She is normocephalic. EOMs intact. PERRLA. Throat clear. Fundi benign. TMs within normal limits. NECK: Supple without thyromegaly, lymphadenopathy, or carotid bruits. LUNGS: Have end-expiratory wheezes scattered throughout. She is still tachypneic. HEART: Tachycardic without murmurs, gallops, or friction rubs. ABDOMEN: Soft. Active bowel sounds. No organomegaly or tenderness. BREAST: Exam deferred. PELVIC: Exam deferred. RECTAL: Exam deferred. INTEGUMENT: Shows no lesions consistent with melanoma. No other signs of cancer. FOOT EXAM: Has good pulses at 2+ over 2+ bilaterally and has good sensation in her feet. DIAGNOSTIC DATA: White count was 5410, hemoglobin 12.2, hematocrit 37.8. Chest x-ray was clear. EKG shows a sinus tachycardia with 1st degree AV block. ASSESSMENT: 1. Exacerbation of asthma and bronchitis, unresponsive to outpatient treatment. 2. Peripheral vascular disease. 3. Hypertension. 4. Glaucoma. PLAN: We will admit, give IV Solu-Medrol, give breathing treatments, start on antibiotics. cc: MD Manny Camacho Jr
[2018-07-10] MEDS: DUONEB (A & A) INH SCH (22:10)
[2018-07-10 22:57] LABS: URINE SOURCE CLEAN CATCH
[2018-07-10] MEDS: ROCEPHIN 1 GM in NS 50 ML IV SCH (23:02)
[2018-07-10] MEDS: DITROPAN XL PO SCH (23:03)
[2018-07-10 23:07] LABS: BILIRUBIN URINE NEGATIVE (NEGATIVE); BLOOD URINE NEGATIVE (NEGATIVE); COLOR YELLOW; GLUCOSE URINE NEGATIVE (NEGATIVE); KETONE URINE NEGATIVE (NEGATIVE); LEUKOCYTES URINE NEGATIVE (NEGATIVE); NITRITE URINE NEGATIVE (NEGATIVE); PROTEIN URINE NEGATIVE (NEGATIVE); SP GRAVITY URINE 1.008; TURBIDITY URINE CLEAR (CLEAR); UR EPITHELIAL CELLS <10 /HPF (<10); URINE BACTERIA NEGATIVE /HPF; URINE RBC <10 /HPF (<10); URINE WBC <10 /HPF (<10); UROBILINOGEN URINE NORMAL (NORMAL)
[2018-07-11] MEDS: SOLU-MEDROL IV SCH ×4 (01:39→20:44)
[2018-07-11] MEDS: PATADAY 0.2% OPH SOLUTION BOTH EYES SCH ×3 (01:40→20:45)
[2018-07-11] MEDS: DUONEB (A & A) INH SCH ×4 (05:56→21:21)
--- NOTE | 2018-07-11 08:24 | EKG Report ---
Test Performed on : 07/10/2018 4:48:59 PM Test Reason : CP Blood Pressure : / mmHG Vent. Rate : 061 BPM Atrial Rate : 061 BPM P-R Int : 254 ms QRS Dur : 054 ms QT Int : 406 ms P-R-T Axes : 048 -18 017 degrees QTc Int : 408 ms Sinus rhythm. with 1st degree AV block. Otherwise normal ECG When compared with ECG of 25-APR-2017 15:14, No significant change was found Unconfirmed Result
[2018-07-11] MEDS ORDERED: METFORMIN HCL 850 MG PO SCH (09:00)
[2018-07-11] MEDS: ROCEPHIN 1 GM in NS 50 ML IV SCH ×2 (09:11→20:45)
[2018-07-11] MEDS: NEXIUM PO SCH (09:15)
[2018-07-11] MEDS: ALDACTAZIDE 25/25 PO SCH (09:16)
[2018-07-11] MEDS: FISH OIL CONCENTRATE PO SCH (09:16)
[2018-07-11] MEDS: COZAAR PO SCH (09:16)
[2018-07-11] MEDS: SINGULAIR PO SCH (09:16)
[2018-07-11] MEDS: XARELTO PO SCH (09:16)
--- NOTE | 2018-07-11 09:20 | PROGRESS NOTE ---
DATE: 07/11/2018 SUBJECTIVE: The patient is still short of breath. Does not seem to be wheezing as much but is still fairly tachypneic. OBJECTIVE: Vital Signs: Show respirations at 28 per minute, temperature is 98.3 degrees Fahrenheit, blood pressure 101/71, pulse 80 and regular. HEENT: She is normocephalic. EOMS intact. PERRLA. Throat clear. Lungs: Sound clear to auscultation but she is tachypneic. Heart: Regular rate and rhythm without murmurs, gallops, or friction rubs. Abdomen: Soft. Active bowel sounds. No organomegaly or tenderness. Neurological: Intact grossly. ASSESSMENT: Acute asthma attack with bronchitis. PLAN: Continue support with IV Solu-Medrol, breathing treatments and IV antibiotics. cc: Jus Lo Jr, MD
[2018-07-11] MEDS: DITROPAN XL PO SCH (20:45)
[2018-07-12] MEDS: SOLU-MEDROL IV SCH ×5 (01:58→23:02)
[2018-07-12] MEDS: DUONEB (A & A) INH SCH ×2 (03:35→09:59)
[2018-07-12 06:45] LABS: HEMATOCRIT 37.5 % (37.0-47.0); HEMOGLOBIN 12.2 g/dL (12.0-16.0); IMM GRAN# 0.02 X1000 (0.0-0.04); IMM GRAN% 0.2 % (0.0-0.5); LYMPH# 0.59 X1000 (1.2-3.4); LYMPH% 5.6 % (20.5-51.1); MCH 28.6 PG (27-31); MCHC 32.5 g/dL (33-37); MCV 87.8 FL (81-99); MONO# 0.18 X1000 (0.11-0.59); MONO% 1.7 % (1.7-9.3); MPV 9.8 FL (7.4-10.4); NEUT# 9.68 X1000 (1.4-6.5); NEUT% 92.5 % (42.2-75.2); PLT 332 X1000 (130-400); RBC 4.27 XMIL (4.2-5.4); RDW 13.4 % (11.5-14.5); WBC 10.47 X1000 (4.8-10.8)
[2018-07-12 07:03] LABS: CALCIUM 9.6 mg/dL (8.8-10.2); CREATININE 1.2 mg/dL (0.5-0.9); POTASSIUM 3.3 mmol/L (3.5-5.1)
[2018-07-12 07:12] LABS: LYMPHS 4 % (21-51); MONO 2 % (1-9); SEGS 94 % (42-75)
[2018-07-12] MEDS: COZAAR PO SCH (09:06)
[2018-07-12] MEDS: NEXIUM PO SCH (09:06)
[2018-07-12] MEDS: XARELTO PO SCH (09:06)
[2018-07-12] MEDS: ALDACTAZIDE 25/25 PO SCH (09:06)
[2018-07-12] MEDS: ROCEPHIN 1 GM in NS 50 ML IV SCH ×2 (09:06→21:59)
[2018-07-12] MEDS: XANAX PO SCH ×3 (09:06→21:58)
[2018-07-12] MEDS: SINGULAIR PO SCH (09:06)
[2018-07-12] MEDS: COLACE PO SCH ×2 (09:06→21:59)
[2018-07-12] MEDS: FISH OIL CONCENTRATE PO SCH (09:07)
[2018-07-12] MEDS: KLOR-CON PO SCH ×2 (09:07→21:59)
[2018-07-12] MEDS: PATADAY 0.2% OPH SOLUTION BOTH EYES SCH ×2 (09:07→22:02)
--- NOTE | 2018-07-12 09:09 | PROGRESS NOTE ---
DATE: 07/12/2018 SUBJECTIVE: The patient says she is still short of breath. She says she had a little bit of a panic attack. She has not had one in a long time. She is still breathing fast and short of breath when she gets up and moves around. OBJECTIVE: Vital Signs: Blood pressure 127/70, respirations 20, pulse 82, and temperature 98.2 degrees. HEENT: She is normocephalic. EOMS intact. PERRLA. Throat clear. Lungs: Clear to auscultation and percussion without rhonchi, rales, or wheezes. Heart: Regular rate and rhythm without murmurs, gallops, or friction rubs. Abdomen: Soft. Active bowel sounds. No organomegaly or tenderness. Neurological: Intact grossly. DISCUSSION: The patient still seems short of breath. We will get a blood gas. I do not know whether some of this could be hyperventilation since her lungs sound clear. We will give her some Xanax. Also, her potassium was a little low at 3.3 so we will supplement. ASSESSMENT: 1. Acute asthma attack. 2. Bronchitis. 3. Hypokalemia. 4. Possible panic attack. PLANS: We will get blood gas and re-evaluate. See orders cc: Jus Lo Jr, MD
[2018-07-12 10:54] LABS: ALLEN TEST YES; BE -1.1 mmoll (-3.0-3.0); BLOOD TYPE ARTERIAL; METHB 1.4 % (0.0-1.5); O2(CT) 16.7 mL/dL (15.0-23.0); O2HB 95.6 % (95.0-99.0); PCO2(98.6) 31 mmHg (35-45); PO2(98.6) 85 mmHg (60-100); SAMPLE BLOOD; SAO2 98.7 % (95.0-100.0); THB 12.4 g/dL (11.5-17.4); pH(98.6) 7.46 (7.35-7.45)
[2018-07-12 10:56] LABS: MODALITY ROOM AIR
[2018-07-12] MEDS ORDERED: SOLU-MEDROL IV SCH (14:00)
[2018-07-12] MEDS: DUONEB (A & A) INH PRN ×2 (16:25→21:13)
[2018-07-12] MEDS: DITROPAN XL PO SCH (21:59)
[2018-07-13] MEDS: XANAX PO SCH ×4 (04:24→23:21)
[2018-07-13] MEDS: SOLU-MEDROL IV SCH ×3 (06:14→23:31)
[2018-07-13 06:44] LABS: HEMATOCRIT 35.3 % (37.0-47.0); HEMOGLOBIN 11.5 g/dL (12.0-16.0); IMM GRAN# 0.04 X1000 (0.0-0.04); IMM GRAN% 0.3 % (0.0-0.5); LYMPH# 1.02 X1000 (1.2-3.4); LYMPH% 8.3 % (20.5-51.1); MCH 28.7 PG (27-31); MCHC 32.6 g/dL (33-37); MONO# 0.53 X1000 (0.11-0.59); MONO% 4.3 % (1.7-9.3); MPV 9.8 FL (7.4-10.4); NEUT# 10.74 X1000 (1.4-6.5); NEUT% 87.1 % (42.2-75.2); PLT 331 X1000 (130-400); RBC 4.01 XMIL (4.2-5.4); RDW 13.9 % (11.5-14.5); WBC 12.33 X1000 (4.8-10.8)
[2018-07-13 07:08] LABS: CALCIUM 9.3 mg/dL (8.8-10.2); CREATININE 1.1 mg/dL (0.5-0.9); POTASSIUM 4.7 mmol/L (3.5-5.1)
[2018-07-13 07:14] LABS: LYMPHS 8 % (21-51); MONO 4 % (1-9); SEGS 88 % (42-75)
[2018-07-13] MEDS: ROCEPHIN 1 GM in NS 50 ML IV SCH ×2 (08:15→21:06)
[2018-07-13] MEDS: NEXIUM PO SCH (08:16)
[2018-07-13] MEDS: COLACE PO SCH ×2 (08:17→23:32)
[2018-07-13] MEDS: COZAAR PO SCH (08:17)
[2018-07-13] MEDS: ALDACTAZIDE 25/25 PO SCH (08:18)
[2018-07-13] MEDS: XARELTO PO SCH (08:18)
[2018-07-13] MEDS: KLOR-CON PO SCH ×2 (08:18→21:06)
[2018-07-13] MEDS: SINGULAIR PO SCH (08:18)
[2018-07-13] MEDS: PATADAY 0.2% OPH SOLUTION BOTH EYES SCH ×2 (08:28→21:06)
[2018-07-13] MEDS: FISH OIL CONCENTRATE PO SCH (08:28)
--- NOTE | 2018-07-13 09:38 | PROGRESS NOTE ---
DATE: 07/13/2018 SUBJECTIVE: The patient says she is having chest pain. It is sharp, a little bit right-sided but started near the sternum, started this morning. She has been short of breath. She has continued to have shortness of breath even though the lungs have been clear. She has also complained of constipation which we will try to treat. She has had a pulmonary embolism in the past but her D- dimer previously was normal. She is already on Xarelto. OBJECTIVE: Vital Signs: Blood pressure is 129/70, respirations 16, pulse 60, temp 98.3 degrees. HEENT: She is normocephalic. EOMS intact. PERRLA. Throat clear. Lungs: Sound clear to auscultation and percussion without rhonchi, rales, or wheezes. She has no chest wall pain on palpation. Heart: Regular rate and rhythm without murmurs, gallops, friction rubs. Abdomen: Soft. Active bowel sounds. No organomegaly or tenderness. Neurological: Intact grossly. I do think she appears anxious. She is tachypneic at the time I am examining her with respirations more along 24 times a minute. ASSESSMENT: 1. Asthma attack. 2. Chest pain. 3. History of pulmonary embolism. PLAN: Will consult Cardiology and consult Pulmonology. We will get cardiac enzymes. Apparently, she has had some bradycardia in the past and was told she was borderline for needing a pacemaker. cc: Jus Lo Jr, MD
--- NOTE | 2018-07-13 09:43 | EKG Report ---
Test Performed on : 07/13/2018 09:18:28 AM Test Reason : chest pain Blood Pressure : / mmHG Vent. Rate : 064 BPM Atrial Rate : 064 BPM P-R Int : 184 ms QRS Dur : 064 ms QT Int : 386 ms P-R-T Axes : 037 002 083 degrees QTc Int : 398 ms Normal sinus rhythm. ST elevation, consider inferior injury or acute infarct ACUTE VA / STEMI Abnormal ECG When compared with ECG of 10-JUL-2018 16:48, (Unconfirmed) ND interval has decreased ST elevation has replaced ST depression in Inferior leads ST no longer elevated in Anterolateral leads Nonspecific T wave abnormality no longer evident in Inferior leads T wave inversion now evident in Lateral leads Best of several attempts. Patient very short of breath. NW Unconfirmed Result
[2018-07-13] MEDS: DUONEB (A & A) INH PRN ×2 (09:54→21:03)
--- NOTE | 2018-07-13 11:34 | EKG Report ---
Test Performed on : 07/13/2018 11:16:37 AM Test Reason : chest pain Blood Pressure : / mmHG Vent. Rate : 072 BPM Atrial Rate : 072 BPM P-R Int : 204 ms QRS Dur : 070 ms QT Int : 384 ms P-R-T Axes : 038 -01 059 degrees QTc Int : 420 ms Normal sinus rhythm. Normal ECG When compared with ECG of 13-JUL-2018 09:18, (Unconfirmed) ST no longer elevated in Inferior leads T wave inversion no longer evident in Lateral leads Unconfirmed Result
[2018-07-13] MEDS ORDERED: MORPHINE IV PRN (11:48)
--- NOTE | 2018-07-13 12:04 | CARDIOLOGY CONSULTATION ---
DATE: 07/13/2018 CHIEF COMPLAINT: Cardiology was consulted for chest tightness. HISTORY OF PRESENT ILLNESS: Ms. Harrison Beckwith is a 67-year-old Afro-[place] lady who has been having cough with wheezing for the last couple of weeks and was treated with antibiotics as an outpatient. She has also noticed a yellow productive cough and symptoms worsened and she was admitted for further treatment. From a cardiac standpoint, she has had previous workup with no significant obstructive coronary artery disease. She has had pulmonary embolism in the past. Has been anticoagulated. She complains of having chest tightness with coughing and breathing but no symptoms suggestive of angina. There is no palpitations. There is no dizziness. She has shortness of breath given her wheezing and cough. REVIEW OF SYSTEM: A 14-point review of systems was done. GI: There is no history of nausea, vomiting, diarrhea. There is no history of hematemesis or melena. Central Nervous System: No focal weakness to suggest a cerebrovascular accident or transient ischemic attack. Genitourinary: There is no dysuria or hematuria. PAST MEDICAL HISTORY: 1. She has had cardiac catheterization in the past which was normal. 2. History of pulmonary embolism on anticoagulation therapy. 3. History of mitral regurgitation. 4. Hypertension. 5. Diabetes. 6. Asthma. 7. History of syncope in the past. 8. Degenerative joint disease. 9. Diabetes. HOME MEDICATIONS: Losartan, Singular, Symbicort, vitamin D, olopatadine, Aldactazide, inhalers, losartan, metformin, Ditropan, and Xarelto 20. SOCIAL HISTORY: She has not smoked. There is no history of alcohol abuse. PHYSICAL EXAMINATION: Vital Signs: Blood pressure 150/70. Cardiovascular System: Normal jugular venous pressure. First and second heart sounds were heard. There is faint systolic murmur. Respiratory System: Distant breath sounds. Scattered expiratory wheeze. Abdomen: Soft, nontender. There was no guarding or rigidity. Bowel sounds were heard. Central nervous system: Alert and was moving all 4 extremities. Extremities: Examination of extremities revealed no pedal edema. HEENT: Atraumatic, normocephalic. Pupils were equal and reacting to light. ASSESSMENT AND PLAN: 1. Ms. Prabha Beckwith is a 67-year-old Afro-[place] lady who has asthma, has had respiratory tract infection treated with antibiotics as an outpatient and did not respond to it. Comes with complaints of increasing shortness of breath and wheezing with cough and expectoration. She has been started on medications, IV antibiotics and IV Solu-Medrol and Pulmonary has been consulted. From a cardiac standpoint, she has episodes of chest tightness with the cough. Electrocardiogram did not reveal any evidence of ischemia or infarction. First set of cardiac enzymes were negative. We will get 2 more sets of cardiac enzymes. 2. In the past at [facility] she has had a cardiac catheterization which did not reveal any obstructive coronary artery disease. She has mitral regurgitation. We will get an echocardiogram. 3. She has history of pulmonary embolism but has been anticoagulated with Xarelto, which she has been taking regularly. D-dimers were unremarkable. 4. Hypertension, continue with the current medications. 5. She has asthma and worsening shortness of breath probably because of ongoing respiratory tract infection. Dr. Hoffmann has been consulted. Thank you for the consult. We will follow the hospital course. cc: MD Jus Jaquez Jr, MD
--- NOTE | 2018-07-13 14:56 | Diag Imaging Result Doc PS360 ---
CHEST-2 VIEWS - 07/13/2018 INDICATION: abnormal exam COMPARISON: 07/10/2018 FINDINGS: Stable low lung volumes with moderate left hemidiaphragm elevation. Stable patchy bibasilar atelectasis. No infiltrates or effusions. Heart size is normal. IMPRESSION: No change from prior. Electronically signed by Kobi Fletcher 07/13/2018 2:54 PM
[2018-07-13] MEDS ORDERED: NS 1,000 ML IV SCH (15:30)
--- NOTE | 2018-07-13 16:18 | ECHO REPORT ---
ORDER DATE: 07/13/2018 INDICATION: Dyspnea, hypertension, chest pain, shortness of breath, diabetes. FINDINGS: 1. Right atrium appears normal in size with a dimension of 3.3 cm. 2. Mild tricuspid regurgitation. RV systolic pressure of 36. 3. Normal RV size and systolic function. 4. Mild pulmonic insufficiency. 5. Normal left atrial size with a volume index of 21 and a dimension of 3.4 cm. 6. No mitral valve prolapse. Mild mitral regurgitation. No evidence of mitral stenosis. 7. Normal LV size, end-diastolic dimension of around 3 cm. Normal wall thicknesses with a posterior and interventricular septal wall thickness of 1.1 cm each. Normal LV systolic function. Estimated EF is 65% with normal wall motion. 8. Aortic valve opens well. No evidence of stenosis or insufficiency. The valve is trileaflet. 9. Aorta appears normal in visualized segments. 10. No pericardial effusion seen. cc: MD Marzena Santiago PA Roger H. Moss Jr, MD
--- NOTE | 2018-07-13 18:21 | PULMONOLOGY CONSULTATION ---
DATE: 07/13/2018 REQUESTING PHYSICIAN: Dr. Jus Lo. REASON FOR CONSULTATION: Asthma exacerbation. HISTORY OF PRESENT ILLNESS: Ms. Freeman is a 67-year-old black female, never smoker, who reports increased shortness of breath over the last 7 days. The patient was evaluated by Dr. Day, who is her primary care physician, and she received steroids and antibiotics. She presented to the emergency room with increased cough and increased shortness of breath. The patient had a history of a prior pulmonary embolus and D-dimer was negative. The patient continues to have episodes of severe dyspnea. She had abnormal EKG this morning, but followup EKG was completely normal. She has previously undergone a cardiac catheterization without significant blockages identified. The patient reports she has carried the diagnosis of asthma since she was 7 to 8 years old. She reports she has undergone allergy testing and is allergic to grasses, weeds, trees, and other environmental allergens. She is also allergic to latex, azithromycin, and Band- Aids. She has had GE reflux and has been on a proton pump inhibitor for many, many years. She does not recall how severe her reflux was. This morning, she also had severe epigastric stabbing pain which had resolved by the time I evaluated the patient. PAST MEDICAL HISTORY: 1. Asthma, as per above. 2. Paralysis of the left hemidiaphragm. Reviewing her chest x-ray indicates this likely occurred around September 2013. 3. Bilateral breast cancer in 1997, status post bilateral mastectomy. 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 4. Hypertension. 5. Type 2 diabetes mellitus. 6. Pulmonary emboli x2 on chronic anticoagulation. 7. Spinal stenosis with chronic back pain. 8. Coronary artery disease noted on one prior admission to the hospital but normal catheterization indicated per cardiology's notes. 9. Dyslipidemia. 10. Status post cervical neck fusion. 11. Hysterectomy. 12. Appendectomy. 13. Status post cholecystectomy. FAMILY HISTORY: Positive for breast cancer, prostate cancer, and myocardial infarctions. SOCIAL HISTORY: The patient is retired from [employer]. She is a never smoker. She is a nondrinker. She has 2 children. PHYSICAL EXAMINATION: General: Reveals a well-developed, well-nourished, black female resting comfortably and in no distress. Vital Signs: Blood pressure 136/70, heart rate 72, respiratory rate 22, oxygen saturation 100% on room air. HEENT: Pupils are equal and reactive. Oropharynx is clear. Neck: Supple. Chest: Reveals diminished breath sounds at left base, minimal wheezing. No rhonchi. No tactile fremitus. Cardiac Exam: S1-S2. Abdomen: Soft without hepatosplenomegaly. Extremities: Without edema. LABORATORY DATA: D-dimer was less than 0.27. Arterial blood gas revealed a pH of 7.46, pCO2 of 31, PO2 of 85. Sodium 138, potassium 4.7, chloride 104, bicarbonate 22, BUN 33, creatinine 1.1, glucose 148. CPK and troponin levels during this hospitalization are within normal limits. White blood count 12.3, hemoglobin 11.5, platelet count 331,000. IMPRESSION: A 67-year-old with mild asthma exacerbation, but symptoms out of proportion to clinical exam. The patient's x-ray indicates chronic paralysis of the left hemidiaphragm which may be contributing to the atypical presentation. The patient has a history of pulmonary emboli, but her D-dimer is extremely low, making that less likely. She also is on chronic anticoagulation. The patient has had a presumptive recurrence of her breast cancer approximately 10 years after initial presentation. It is possible that breast cancer can metastasize to the airways. RECOMMENDATIONS: 1. Continue current steroids, antibiotics and bronchodilators as you are doing for mild asthma exacerbation. 2. CT scan of the thorax to rule out metastatic disease and to evaluate the airways. 3. Consider CT scan of the abdomen and pelvis given her known recurrence in the intestine in 2006. 4. Additional recommendations pending hospital course. cc: MD Jus Roque Jr, MD
[2018-07-13] MEDS: DITROPAN XL PO SCH (21:06)
[2018-07-14] MEDS: DUONEB (A & A) INH PRN ×4 (03:25→21:18)
[2018-07-14 05:13] LABS: HEMATOCRIT 35.8 % (37.0-47.0); HEMOGLOBIN 11.6 g/dL (12.0-16.0); IMM GRAN# 0.05 X1000 (0.0-0.04); IMM GRAN% 0.5 % (0.0-0.5); LYMPH# 1.01 X1000 (1.2-3.4); LYMPH% 10.1 % (20.5-51.1); MCH 28.6 PG (27-31); MCHC 32.4 g/dL (33-37); MCV 88.2 FL (81-99); MONO# 0.54 X1000 (0.11-0.59); MONO% 5.4 % (1.7-9.3); MPV 9.7 FL (7.4-10.4); NEUT# 8.39 X1000 (1.4-6.5); PLT 276 X1000 (130-400); RBC 4.06 XMIL (4.2-5.4); WBC 9.99 X1000 (4.8-10.8)
[2018-07-14 05:29] LABS: CREATININE 1.2 mg/dL (0.5-0.9)
[2018-07-14] MEDS: XANAX PO SCH ×4 (06:24→22:19)
[2018-07-14] MEDS: SOLU-MEDROL IV SCH ×3 (06:49→22:18)
--- NOTE | 2018-07-14 07:21 | PROGRESS NOTE ---
DATE: 07/14/2018 SUBJECTIVE: The patient is still short of breath. Still has some chest discomfort. Cardiology has seen her and do not feel like this is cardiac in nature. Pulmonology has seen her as well. She continues to be short of breath beyond what one would expect on physical examination and clinically. CT scan of the chest has been done, but not read yet. OBJECTIVE: Vital Signs: Respirations 18, pulse 75, temperature 97.5 degrees Fahrenheit, blood pressure 105/65. Laboratory: White count is 9990, hemoglobin is 11.6, hematocrit 35.8. Chemistries are essentially normal. HEENT: She is normocephalic. EOMS intact. PERRLA. Throat clear. Lungs: Clear to auscultation and percussion without rhonchi, rales, or wheezes, even though she appears to be short of breath. Heart: Regular rate and rhythm without murmurs, gallops, or friction rubs. Abdomen: Soft. Active bowel sounds. No organomegaly or tenderness. Neurological: Intact grossly. The patient does have a history of breast cancer. CT scan pending. ASSESSMENT: 1. Asthma attack. 2. Bronchitis. 3. Continued shortness of breath without bronchospasm. PLAN: Await CT scan results and continue current treatments. cc: Jus Lo Jr, MD
--- NOTE | 2018-07-14 09:11 | Diag Imaging Result Doc PS360 ---
EXAM: CT THORAX W/CONTRAST INDICATION: dyspnea, paralyzed diaphragm, h/o breast cancer TECHNIQUE: This exam was performed using automated exposure control, adjustment of mA or kV according to patient size, and/or use of iterative reconstruction technique. COMPARISON: None. FINDINGS: There is a calcified granuloma in the left upper lobe. There is chronic elevation of the left hemidiaphragm. There is trace atelectasis at the lung bases. The lungs are clear, otherwise. There is nothing to suggest parenchymal metastatic disease. There is no cardiomegaly. There are calcified mediastinal and left hilar lymph nodes indicating prior granulomatous disease. No significant lymphadenopathy is appreciated, otherwise. Limited views of the upper abdomen are essentially unremarkable. There is spondylosis throughout the thoracic spine. There is nothing to suggest local bony metastatic disease. IMPRESSION: Chronic elevation of the left hemidiaphragm and minimal bibasilar subsegmental atelectasis. Essentially unremarkable chest CT, otherwise. Electronically signed by Aravind Schneider 07/14/2018 9:09 AM
[2018-07-14] MEDS: ROCEPHIN 1 GM in NS 50 ML IV SCH ×2 (10:19→22:17)
[2018-07-14] MEDS: KLOR-CON PO SCH ×2 (10:20→22:18)
[2018-07-14] MEDS: XARELTO PO SCH (10:20)
[2018-07-14] MEDS: IMDUR PO SCH (10:20)
[2018-07-14] MEDS: NEXIUM PO SCH (10:20)
[2018-07-14] MEDS: FISH OIL CONCENTRATE PO SCH (10:21)
[2018-07-14] MEDS: SINGULAIR PO SCH (10:21)
[2018-07-14] MEDS: COLACE PO SCH ×2 (10:21→22:18)
[2018-07-14] MEDS: COZAAR PO SCH (10:21)
[2018-07-14] MEDS: PATADAY 0.2% OPH SOLUTION BOTH EYES SCH ×2 (10:25→22:17)
[2018-07-14] MEDS: ALDACTAZIDE 25/25 PO SCH (16:13)
[2018-07-14] MEDS ORDERED: DULCOLAX PR ONE (17:59)
[2018-07-14] MEDS ORDERED: MILK OF MAGNESIA PO ONE (18:00)
--- NOTE | 2018-07-14 19:38 | PULMONOLOGY PROGRESS NOTE ---
DATE: 07/14/2018 SUBJECTIVE: The patient reports she had a shortness of breath episode earlier this morning, but has returned to her baseline. OBJECTIVE: The patient has been afebrile for the last 24 hours. Blood pressure 157/78, heart rate 74, respiration rate 14, oxygen saturation 97% on room air. HEENT: Pupils are equal and reactive. Oropharynx is clear. Neck is supple. Chest reveals decreased breath sounds, left base, but clear breath sounds on the right. Cardiac exam: S1, S2. Abdomen is soft. Extremities are without edema. DIAGNOSTIC DATA: CT scan of the thorax 07/13/2018 reveals chronic elevation of the left hemidiaphragm with minimal atelectasis, but otherwise no acute changes. IMPRESSION: 1. A 67-year-old with dyspnea out of proportion to clinical exam. 2. Asthma. 3. Hypertension. 4. History of pulmonary emboli. RECOMMENDATIONS: 1. Wean steroids as tolerated. 2. Continue bronchodilators. 3. Continue anxiolytics. cc: MD Jus Roque Jr, MD
--- NOTE | 2018-07-14 20:59 | CARDIOLOGY PROGRESS NOTE ---
DATE: 07/14/2018 CHIEF COMPLAINT: Dyspnea. SUBJECTIVE: Ms. Harrison Beckwith is still complaining of some dyspnea. She denies having chest pain. No other issues. OBJECTIVE: Vital Signs: Blood pressure is 157/78. Her pulse is 74, respirations 14. Her temperature is 97.9. She is awake, alert and oriented, in no distress. HEENT: Unremarkable. Chest: Shows diffusely diminished breath sounds. Cardiovascular: Heart sounds are regular and rhythmic. I do not hear a gallop or murmur. Abdomen: Nontender. Extremities: Show no edema. Neurological: Follows commands and moves all 4 extremities. BLOOD WORK: Sodium 136, potassium 4.0, chloride 104, carbon dioxide 22, BUN 32, creatinine 1.2. Multiple troponins have been checked, a total of 6 times. Her troponins are negative. A proBNP level has been checked today. DIAGNOSTICS: EKG from July 13 was a total disaster as far as quality, and the computer called it acute myocardial infarction. That was an inadequate and unacceptable EKG. It should be removed from the records. CT of the chest that was done on July 13 showed chronic elevation of the left hemidiaphragm and minimal bibasilar subsegmental atelectasis. Essentially unremarkable chest CT. The patient has had an echocardiogram also on July 13 that showed normal left ventricular ejection fraction and normal valvular structures. IMPRESSION: 1. The patient has dyspnea which is not explained by any cardiac pathology. 2. The patient is obese. 3. She has hypertension, history of breast cancer, history of pulmonary embolism, diabetes mellitus, and asthma. RECOMMENDATIONS: At this point in time I do not have any further suggestions. I will let Dr. Hoffmann and the primary service decide what else needs to be done. Cardiac schultz, I do not have any further recommendations. cc: MD Jus Roche Jr, MD
[2018-07-14] MEDS: DITROPAN XL PO SCH (22:18)
[2018-07-15] MEDS: XANAX PO SCH ×4 (02:50→22:03)
[2018-07-15] MEDS: DUONEB (A & A) INH PRN ×4 (03:22→21:38)
[2018-07-15] MEDS: SOLU-MEDROL IV SCH (07:44)
[2018-07-15] MEDS: ROCEPHIN 1 GM in NS 50 ML IV SCH ×2 (08:16→22:04)
[2018-07-15] MEDS: ALDACTAZIDE 25/25 PO SCH (08:17)
[2018-07-15] MEDS: NEXIUM PO SCH (08:17)
[2018-07-15] MEDS: FISH OIL CONCENTRATE PO SCH (08:17)
[2018-07-15] MEDS: COLACE PO SCH ×2 (08:17→22:04)
[2018-07-15] MEDS: KLOR-CON PO SCH (08:17)
[2018-07-15] MEDS: SINGULAIR PO SCH (08:17)
[2018-07-15] MEDS: XARELTO PO SCH (08:17)
[2018-07-15] MEDS: COZAAR PO SCH (08:18)
[2018-07-15] MEDS: IMDUR PO SCH (08:18)
[2018-07-15] MEDS: PATADAY 0.2% OPH SOLUTION BOTH EYES SCH ×2 (08:23→22:12)
--- NOTE | 2018-07-15 11:11 | Diag Imaging Result Doc PS360 ---
EXAM: ABDOMEN FLAT/UPRIGHT INDICATION: Constipation TECHNIQUE: 2 views COMPARISON: None. FINDINGS: There is a fair amount stool throughout the colon suggesting possible mild to moderate constipation. There is no obstructive bowel pattern. There is no evidence of large volume free abdominal gas. There has been prior lumbar fusion. IMPRESSION: Possible mild to moderate constipation. Electronically signed by Aravind Schneider 07/15/2018 11:09 AM
[2018-07-15] MEDS ORDERED: CITRATE OF MAGNESIA PO ONE (11:52)
--- NOTE | 2018-07-15 12:26 | PROGRESS NOTE ---
DATE: 07/15/2018 SUBJECTIVE: The patient says she is feeling a little bit better, but she still has some shortness of breath and is still tachypneic at times. I asked her about her stresses and anxieties, and she says she did not think she had any. OBJECTIVE: Vital Signs: Respirations of 20, pulse 69, temperature 98.2 degrees Fahrenheit. Blood pressure 138/75. General: She says she is still constipated. HEENT: She is normocephalic. Extraocular movements intact. Throat clear. Lungs: Clear to auscultation and percussion without rhonchi, rales, or wheezes. Heart: Regular rate rhythm without murmurs, gallops, friction rubs. Abdomen: Soft. Active bowel sounds. Neurological: Intact grossly. IMAGING: X-ray does show some constipation. Cardiology feels like her shortness of breath is not related to her heart. ASSESSMENT: 1. Asthma attack. 2. Shortness of breath out of proportion to clinical findings. 3. Constipation. 4. History of breast cancer. PLAN: We will give her magnesium citrate 300 mL p.o. We will taper her off of her steroids. We will increase her Xanax slightly. Dr. Day, who is her regular physician will be back tomorrow. He may has better insight into her underlying stresses and knowledge about her tachypnea. It should also be noted the patient had some hypokalemia and I have given her some potassium and that has come back up to 5. cc: MD Manny Camacho Jr, MD
[2018-07-15] MEDS: PREDNISONE PO SCH (14:41)
--- NOTE | 2018-07-15 16:36 | PULMONOLOGY PROGRESS NOTE ---
DATE: 07/15/2018 SUBJECTIVE: The patient reports she continues to have periods of dyspnea. OBJECTIVE: Vital signs: The patient has been afebrile for the last 24 hours. Blood pressure 138/75, heart rate 69, respiratory rate 20, oxygen saturation 100% on room air. HEENT: Pupils are equal and reactive. Oropharynx appears clear. Neck: Supple. Chest: Reveals diminished breath sounds at the left base. Abdomen: Soft with mild fullness in both the right and left lower quadrants. Extremities: Without edema. LABORATORIES: KUB reveals a significant amount of stool throughout the colon. Sodium 136, potassium 5.0, chloride 104, bicarbonate 22, BUN 32, creatinine 1.2. White blood count 9.99, hemoglobin 11.6, platelet count 276,000. IMPRESSIONS: This is a 68-year-old with: 1. Chronic elevation of the left hemidiaphragm. 2. Asthma exacerbation. 3. Dyspnea out of proportion to clinical exam. 4. Hypertension. 5. Pulmonary emboli. DISCUSSION: This is a 68-year-old with asthma but with minimal wheeze and symptoms significantly out of proportion to exam. The patient does have significant constipation and with her left elevated hemidiaphragm, constipation may be actually contributing to her dyspnea. RECOMMENDATIONS: 1. Agree with magnesium citrate as you are doing. 2. Continue to wean steroids. 3. Continue bronchodilators. cc: MD Manny Roque MD
[2018-07-15] MEDS: DITROPAN XL PO SCH (22:03)
[2018-07-16] MEDS: XANAX PO SCH ×3 (04:47→20:55)
[2018-07-16] MEDS: NEXIUM PO SCH ×2 (06:06→08:11)
[2018-07-16] MEDS ORDERED: DULCOLAX PR ONE (07:54)
[2018-07-16] MEDS: MIRALAX PO SCH (08:09)
[2018-07-16] MEDS: IMDUR PO SCH (08:09)
[2018-07-16] MEDS: FISH OIL CONCENTRATE PO SCH (08:09)
[2018-07-16] MEDS: XARELTO PO SCH (08:09)
[2018-07-16] MEDS: COZAAR PO SCH (08:10)
[2018-07-16] MEDS: ALDACTAZIDE 25/25 PO SCH (08:10)
[2018-07-16] MEDS: ROCEPHIN 1 GM in NS 50 ML IV SCH ×2 (08:10→20:56)
[2018-07-16] MEDS: SINGULAIR PO SCH (08:10)
[2018-07-16] MEDS: PREDNISONE PO SCH (08:10)
[2018-07-16] MEDS: PATADAY 0.2% OPH SOLUTION BOTH EYES SCH ×2 (08:11→20:56)
[2018-07-16] MEDS: VITAMIN D PO SCH (08:16)
--- NOTE | 2018-07-16 08:16 | PROGRESS NOTE ---
DATE: 07/16/2018 SUBJECTIVE: I reviewed the hospital course. The patient was admitted in my absence. Dr. Lo has taken care of the patient for me until now. Patient denies particular dyspnea now. She has had some dry cough that has been persistent. She has not had a bowel movement in several days despite taking Mag citrate yesterday. OBJECTIVE: Vital Signs: Afebrile. Vital signs stable. O2 saturation on room air 100%. CV: RRR without murmur. Lungs: Decreased breath sounds at left lung base. Rare wheezes bilaterally, right slightly greater than left. Abdomen: Soft. Active bowel sounds. No point tenderness. No mass or organomegaly. No rebound or guarding. Extremities: No calf tenderness, cords or edema. Neurologic: Nonfocal. Cranial nerves intact. She moves all extremities well. LABORATORY DATA: Reviewed from the entire hospitalization. ASSESSMENT: 1. Asthma exacerbation. 2. Chronic elevation left hemidiaphragm noted per Dr. Hoffmann. 3. Dyspnea out of proportion to clinical exam. 4. Hypertension. 5. Pulmonary emboli, remote. 6. Constipation. 7. History of somatization. 8. History of breast cancer. PLAN: We will add MiraLAX daily and Dulcolax suppository x1 today. Ambulate the patient. Continue low-dose oral steroids. Continue IV Rocephin. Schedule her albuterol nebulizer treatments q.4 hours while awake. Resume her Symbicort. Continue her Singulair. Continue Imdur, losartan, and diuretic. cc: Manny Day MD
[2018-07-16] MEDS: SYMBICORT 160/4.5 MICROGM INHALER INH SCH ×2 (10:44→19:41)
[2018-07-16] MEDS: ALBUTEROL NEB INH SCH ×4 (10:44→23:29)
[2018-07-16] MEDS: NON-FORMULARY MED (Dulaglutide [Trulicity] 0.75 MG) SQ SCH (13:34)
[2018-07-16] MEDS ORDERED: MORPHINE IV PRN (19:57)
[2018-07-16] MEDS: DITROPAN XL PO SCH (20:56)
[2018-07-17] MEDS: XANAX PO SCH ×4 (02:40→20:01)
[2018-07-17] MEDS: ALBUTEROL NEB INH SCH ×5 (07:21→23:31)
[2018-07-17] MEDS: SYMBICORT 160/4.5 MICROGM INHALER INH SCH ×2 (07:35→19:55)
[2018-07-17] MEDS: MIRALAX PO SCH (08:49)
[2018-07-17] MEDS: PREDNISONE PO SCH (08:50)
[2018-07-17] MEDS: IMDUR PO SCH (08:50)
[2018-07-17] MEDS: XARELTO PO SCH (08:50)
[2018-07-17] MEDS: PATADAY 0.2% OPH SOLUTION BOTH EYES SCH ×2 (08:50→20:02)
[2018-07-17] MEDS: SINGULAIR PO SCH (08:50)
[2018-07-17] MEDS: NEXIUM PO SCH (08:50)
[2018-07-17] MEDS: ALDACTAZIDE 25/25 PO SCH (08:50)
[2018-07-17] MEDS: FISH OIL CONCENTRATE PO SCH (08:50)
[2018-07-17] MEDS: COZAAR PO SCH (08:50)
[2018-07-17] MEDS: ROCEPHIN 1 GM in NS 50 ML IV SCH ×2 (08:53→20:00)
[2018-07-17] MEDS ORDERED: DULCOLAX PR ONE (13:31)
[2018-07-17] MEDS ORDERED: FLEET ENEMA PR ONE (13:31)
--- NOTE | 2018-07-17 17:10 | PROGRESS NOTE ---
DATE: 07/17/2018 SUBJECTIVE: Patient continues to have no bowel movement. She had very scant stool at most. She is not having any particular shortness of breath now. OBJECTIVE: Vital signs: Afebrile, pulse 92, respirations 14, blood pressure 101/61, O2 saturation room air 95%. CV: RRR without distinct murmur. Lungs: CTA. Back: No CVA tenderness. Abdomen: Soft. Active bowel sounds. No pinpoint tenderness. Extremities: No calf tenderness, cords, or edema. Neurologic: Cranial nerves 2-12 are intact. Nonfocal. Still no bowel movement. Eating her meals well at about 75%. ASSESSMENT: 1. Asthma exacerbation, improved. 2. Chronic elevation left hemidiaphragm. 3. Dyspnea out of proportion to the clinical exam, improved. 4. Hypertension. 5. Pulmonary emboli, remote. 6. Constipation. 7. History of somatization. 8. History of breast cancer. PLAN: We have given her MiraLAX and Dulcolax yesterday and will repeat the Dulcolax again this afternoon. She had MiraLAX again this morning. We will give her a fleets enema if she does not have success after the Dulcolax suppository. Continue other medications to include breathing treatments with albuterol, low-dose steroids orally, IV Rocephin. She is back on her Symbicort and Singulair. She is on losartan, Imdur, diuretic. Once she has a stool, we will likely discharge her home; that will likely be in the morning. We will ambulate t.i.d. as well in the interim. Continue blood thinner due to history of pulmonary emboli. cc: Manny Day MD
[2018-07-17] MEDS: DITROPAN XL PO SCH (20:01)
--- NOTE | 2018-07-17 21:32 | PULMONOLOGY PROGRESS NOTE ---
DATE: 07/17/2018 SUBJECTIVE: The patient reports she feels better. She continues to have constipation without significant bowel movement. Her dyspnea has resolved. CLINICAL EXAM/OBJECTIVE: Vital Signs: BP 116/64, heart rate 89, respiratory rate 15, oxygen saturation 100% on 2 L per nasal cannula. HEENT: Pupils are equal and reactive. Oropharynx is clear. Neck: Supple. Chest: Reveals diminished breath sounds left base. No wheezing or rhonchi. Cardiac Exam: S1, S2. Abdomen: Full in the right and left quadrant. Extremities: Without edema. LABS: No new chemistries or CBC. IMPRESSION: A 68-year-old with: 1. Chronic elevation of the hemidiaphragm. 2. Asthma exacerbation, which is resolving. 3. Dyspnea out of proportion to clinical exam, which may be related to chronic elevation of hemidiaphragm plus constipation. 4. Constipation. 5. Hypertension. 6. History of pulmonary emboli. RECOMMENDATIONS: 1. Continue a bowel regimen. Consider Colyte. 2. Continue bronchodilators. 3. Agree with initiation of steroid taper. cc: MD Manny Roque MD
[2018-07-18] MEDS: XANAX PO SCH ×4 (01:53→22:18)
[2018-07-18] MEDS: ALBUTEROL NEB INH SCH ×4 (07:50→20:20)
[2018-07-18] MEDS: SYMBICORT 160/4.5 MICROGM INHALER INH SCH ×2 (07:51→20:36)
[2018-07-18] MEDS ORDERED: GOLYTELY PO ONE (08:22)
--- NOTE | 2018-07-18 08:48 | PROGRESS NOTE ---
DATE: 07/18/2018 SUBJECTIVE: Patient without shortness of breath or difficulties in that regard. She has been ambulating well. She has still not had a bowel movement despite taking Fleet's enema, magnesium citrate, MiraLAX and Dulcolax suppository. So, we are going to change her over to Colyte today. OBJECTIVE: Vital Signs: Afebrile vital signs stable. CV: RRR without murmur. Lungs: Clear. Abdomen: Soft. Active bowel sounds. Mild distention upper abdomen. No particular point tenderness. Extremities: No calf tenderness, cords or edema. Neurologic: Cranial nerves are intact. No focal deficits. ASSESSMENT: 1. Asthma exacerbation, improved. 2. Chronic elevation left hemidiaphragm. 3. Constipation. 4. Hypertension. 5. Remote pulmonary emboli on chronic anticoagulation. 6. History of breast cancer. PLAN: We will continue to taper the prednisone orally. Change from MiraLAX to Colyte. Continue Symbicort, albuterol nebs, Rocephin IV, Singulair. Also, continue losartan, Imdur, diuretic. Ambulate patient. Continue anticoagulant for history of pulmonary emboli. Possible discharge today or tomorrow once she has good bowel movement. cc: Manny Day MD
[2018-07-18] MEDS: NEXIUM PO SCH (09:00)
[2018-07-18] MEDS: COZAAR PO SCH (09:00)
[2018-07-18] MEDS: IMDUR PO SCH (09:00)
[2018-07-18] MEDS: SINGULAIR PO SCH (09:00)
[2018-07-18] MEDS: ROCEPHIN 1 GM in NS 50 ML IV SCH ×2 (09:01→22:18)
[2018-07-18] MEDS: XARELTO PO SCH (09:01)
[2018-07-18] MEDS: ALDACTAZIDE 25/25 PO SCH (09:01)
[2018-07-18] MEDS: PATADAY 0.2% OPH SOLUTION BOTH EYES SCH ×2 (09:03→22:19)
[2018-07-18] MEDS: FISH OIL CONCENTRATE PO SCH (09:03)
[2018-07-18] MEDS: PREDNISONE PO SCH (09:11)
[2018-07-18] MEDS: DITROPAN XL PO SCH (22:18)
[2018-07-19] MEDS: XANAX PO SCH ×4 (02:32→23:17)
[2018-07-19] MEDS: ALBUTEROL NEB INH SCH ×6 (08:07→23:55)
[2018-07-19] MEDS: SYMBICORT 160/4.5 MICROGM INHALER INH SCH ×2 (08:08→19:27)
[2018-07-19] MEDS: ROCEPHIN 1 GM in NS 50 ML IV SCH ×2 (08:37→23:15)
[2018-07-19] MEDS: COZAAR PO SCH (08:38)
[2018-07-19] MEDS: NEXIUM PO SCH (08:38)
[2018-07-19] MEDS: FISH OIL CONCENTRATE PO SCH (08:38)
[2018-07-19] MEDS: IMDUR PO SCH (08:39)
[2018-07-19] MEDS: XARELTO PO SCH (08:39)
[2018-07-19] MEDS: SINGULAIR PO SCH (08:39)
[2018-07-19] MEDS: ALDACTAZIDE 25/25 PO SCH (08:39)
[2018-07-19] MEDS: PREDNISONE PO SCH (08:39)
[2018-07-19] MEDS: PATADAY 0.2% OPH SOLUTION BOTH EYES SCH ×2 (08:49→23:15)
--- NOTE | 2018-07-19 11:18 | Diag Imaging Result Doc PS360 ---
EXAM: ABDOMEN FLAT/UPRIGHT 07/19/2018 HISTORY: constipation TECHNIQUE: Flat and upright abdomen COMMENT: There is a large amount of stool throughout the colon. The stomach and small bowel are not distended. There are surgical clips in the gallbladder fossa. Compared to 07/15/2018 there has been no appreciable change. IMPRESSION: Constipation. Electronically signed by Gurvinder Mtz 07/19/2018 11:15 AM
[2018-07-19] MEDS ORDERED: DULCOLAX PR ONE (13:26)
[2018-07-19] MEDS ORDERED: ZOFRAN IV PRN (13:26)
--- NOTE | 2018-07-19 13:40 | PULMONOLOGY PROGRESS NOTE ---
DATE: 07/18/2018 SUBJECTIVE: The patient is awake, alert and conversant. She reports her shortness of breath is minimal. She is continuing to take Colyte in an attempt to have a bowel movement. She has been ambulating without excessive dyspnea. OBJECTIVE: BP 102/64, heart rate 83, respiratory rate 15, oxygen saturation 100% on room air. HEENT: Pupils are equal and reactive. Oropharynx is clear. Neck is supple. Chest reveals diminished breath sounds, left base. Cardiac exam: S1, S2. Abdomen is full bilaterally. Extremities without edema. LABORATORY DATA: No new chemistries, CBC or blood gas. IMPRESSION: A 68-year-old with: 1. Chronic elevation of the hemidiaphragm. 2. Asthma. 3. Dyspnea. 4. Severe constipation. 5. History of pulmonary emboli. RECOMMENDATIONS: 1. Continue bronchodilator. 2. Agree with steroid taper. 3. Continue bowel regimen. I believe her dyspnea will significantly improve with resolution of her constipation. cc: MD Manny Roque MD
--- NOTE | 2018-07-19 13:46 | PROGRESS NOTE ---
DATE: 07/19/2018 SUBJECTIVE: The patient still has had no bowel movement. She has drunk most of the Colyte. She has been ambulating. She denies shortness of breath. No particular abdominal pain. Had colonoscopy by Dr. Carver in May 2017, showing diverticulosis, otherwise normal. OBJECTIVE: Vital Signs: Afebrile, pulse 87, respirations 18, blood pressure 102/55, O2 saturation 99% on room air. Cardiovascular: RRR without murmur. Lungs: Clear. Abdomen: Soft. Very active bowel sounds. Maybe minimal tenderness diffusely. No mass or organomegaly appreciated. Extremities: No calf tenderness, cords, or edema. Neurological: Nonfocal. Cranial nerves intact. DIAGNOSTIC STUDIES: Repeated an x-ray on her this morning and it shows still a large amount of stool throughout the colon. No small bowel distention or stomach distention. ASSESSMENT: 1. Constipation, pronounced. 2. Asthma exacerbation, resolved. 3. Chronic elevation of the left hemidiaphragm. 4. Hypertension. 5. Remote pulmonary emboli, on chronic anticoagulation. 6. Remote history of breast cancer. PLAN: Since she has had a colonoscopy just over a year ago, I am not going to pursue that presently. I am going to have her drink the rest of the Colyte, and I am going to give her another Dulcolax suppository this time. She has not been holding the enema or Dulcolax suppository very long, unfortunately, and we are going to try to get her to hold that longer for more success. Continue ambulation. If unsuccessful, may get Dr. Carver to see her in consultation tomorrow. cc: Manny Day MD
[2018-07-19] MEDS ORDERED: LINZESS PO ONE (21:51)
[2018-07-19] MEDS ORDERED: PERICOLACE PO ONE (21:51)
--- NOTE | 2018-07-19 22:17 | PULMONOLOGY PROGRESS NOTE ---
DATE: 07/19/2018 SUBJECTIVE: The patient reports she is ambulating without significant shortness of breath. She has completed a bottle of Colyte, but has not yet had a bowel movement. She is having some gas and rumbling in her abdomen, but no pain. OBJECTIVE: Vital Signs: BP 139/73, heart rate 93, respiratory rate 16, oxygen saturation 100% on 2 L per nasal cannula. HEENT: Pupils are equal and reactive. Oropharynx appears clear. Neck: Supple. Chest: Reveals decreased breath sounds left base. Cardiac exam: S1, S2. Abdomen is slightly full with positive bowel sounds. Extremities: Reveal trace edema. LABORATORIES: Chest x-ray reveals stool throughout the colon without change from 07/15/2018. IMPRESSION: A 68-year-old with: 1. Chronic elevation of the diaphragm. 2. Asthma. 3. Constipation. 4. Hypertension. 5. History of pulmonary emboli. RECOMMENDATIONS: 1. We will add Reglan to her regimen. 2. Consider additional Colyte. 3. Continue bronchodilators. 4. Continue steroid taper as tolerated. 5. I agree with plans for GI evaluation if she does not have a bowel movement. cc: MD Manny Roque MD
[2018-07-19] MEDS: DITROPAN XL PO SCH (23:16)
[2018-07-19] MEDS: REGLAN IV SCH (23:18)
[2018-07-20] MEDS: REGLAN IV SCH ×4 (05:15→21:56)
[2018-07-20] MEDS: XANAX PO SCH ×4 (05:16→21:56)
[2018-07-20] MEDS: ALBUTEROL NEB INH SCH ×5 (07:35→23:52)
[2018-07-20] MEDS: SYMBICORT 160/4.5 MICROGM INHALER INH SCH ×2 (07:35→19:15)
[2018-07-20] MEDS: NEXIUM PO SCH (08:04)
[2018-07-20] MEDS: XARELTO PO SCH (08:04)
[2018-07-20] MEDS: ALDACTAZIDE 25/25 PO SCH (08:04)
[2018-07-20] MEDS: FISH OIL CONCENTRATE PO SCH (08:05)
[2018-07-20] MEDS: ROCEPHIN 1 GM in NS 50 ML IV SCH (08:05)
[2018-07-20] MEDS: PREDNISONE PO SCH (08:05)
[2018-07-20] MEDS: IMDUR PO SCH (08:05)
[2018-07-20] MEDS: SINGULAIR PO SCH (08:05)
[2018-07-20] MEDS: COZAAR PO SCH (08:05)
[2018-07-20] MEDS ORDERED: FLEET ENEMA PR ONE (08:41)
[2018-07-20] MEDS ORDERED: GOLYTELY PO ONE (08:42)
[2018-07-20] MEDS: PATADAY 0.2% OPH SOLUTION BOTH EYES SCH ×2 (10:36→21:57)
[2018-07-20] MEDS ORDERED: CITRATE OF MAGNESIA PO ONE (11:25)
[2018-07-20] MEDS ORDERED: DULCOLAX PR ONE (12:20)
--- NOTE | 2018-07-20 13:28 | GASTROENTEROLOGY CONSULTATION ---
DATE: 07/20/2018 REASON FOR CONSULTATION: Constipation. HISTORY OF PRESENT ILLNESS: This is a 68-year-old female who we have seen in the office before. The last time she was seen in our office was on 08/03/2017. She had a colonoscopy on 05/31/2017 with findings of diverticulosis, otherwise normal colonoscopy. She had been having problems with blood when she wiped, and she was having problems with constipation. At that time, we had recommended she take MiraLAX, along with Kristel-Colace 2 every night. We have not seen her in the office since July 2017. She reports admission on 07/10/2018 because of shortness of breath and cough unresponsive to outpatient treatment. She has been in the hospital since 07/10/2018 getting pulmonary management. She has been seen by Dr. Hoffmann. She has diagnosis of exacerbation of asthma and bronchitis. She has a history of pulmonary emboli. The patient states she has really not had a bowel movement in 2 weeks. They have given her multiple laxatives over the last several days including GoLYTELY, enemas, suppositories, and magnesium citrate. At the time of my evaluation, she had just had an enema and was currently holding it. PAST MEDICAL HISTORY: Pulmonary embolism, asthma, allergic rhinitis, history of breast cancer, diabetes, history of gastroparesis, GERD, hypertension, hyperlipidemia. PAST SURGICAL HISTORY: Appendectomy, cholecystectomy, bilateral cataract surgery, femoral bypass, and left foot surgery, history of bilateral mastectomy related to breast cancer. Last colonoscopy was in 2018 that showed diverticulosis with no evidence of colon polyps. ALLERGIES: Zithromax causing a rash, latex causing a rash, Band-aids causes rash. HOME MEDICATIONS: 1. Albuterol 2 puffs inhaler every 4 hours as needed. 2. Symbicort inhaler daily. 3. Trulicity 0.5 mg subcutaneous as directed. 4. Vitamin D 50,000 units daily. 5. Nexium 40 mg daily. 6. Stefani 180 mg daily. 7. Lisinopril/hydrochlorothiazide 20/25 mg daily. 8. Meclizine 25 mg 3 times a day as needed. 9. Singulair 10 mg daily. 10. Eye drops twice a day. 11. Damon-3 fish oil 1 capsule daily. 12. Ditropan XL 5 mg every night. 13. Xarelto 20 mg daily. SOCIAL HISTORY: No reported alcohol or tobacco use. She is retired. She has 2 children. PAST FAMILY HISTORY: Breast cancer in mother and sister. History of lung cancer in father and brother. REVIEW OF SYSTEMS: Per History of Present Illness. PHYSICAL EXAMINATION: Vital Signs: Temperature 98.3 degrees, pulse 86, respirations 20, blood pressure 115/99. General: The patient is awake and alert and in no acute distress. Respiratory: Lung sounds essentially clear. Cardiovascular: Regular rate and rhythm. Abdomen: With active bowel sounds, mildly tender, otherwise soft. Extremities: No lower extremity edema noted. Neurologically: Cranial nerves 2 through 12 grossly intact. Patient is awake, alert, oriented to person, place, and time. DIAGNOSTIC RESULTS: Imaging: Abdominal x-ray on 07/19/2018 showed large amount of stool throughout the colon. The stomach and small bowel were not distended. Laboratory: Hematology showed WBC 9.99, hemoglobin 11.6, hematocrit 35.8, MCV 88.2, platelet 276,000. Chemistry: Sodium 136, potassium 5, chloride 104, CO2 of 22, BUN 32, creatinine 1.2, glucose 151. Total bilirubin 0.18, AST 21, ALT 10, alkaline phosphatase 73. Urinalysis was normal. ASSESSMENT AND PLAN: 1. Recent asthma exacerbation. Continue current management. 2. History of pulmonary emboli on chronic anticoagulation. 3. Constipation. The patient has had multiple laxatives. At the time of my evaluation, she had had an enema. The nurse came in after my visit and stated she did have some small results. Hopefully, that will be getting things started, and we will add a bottle of magnesium citrate and a Dulcolax suppository. Continue current management. Further plans to be made according to her progress. I have discussed this case with Dr. Carver. We will allow clear liquid diet for now. Further plans will be made as needed. Dictated by JULIA Haynes for Black Carver MD cc: JULIA Russell MD Stephen W. Harbin, MD [facility] CENTERMathieu
--- NOTE | 2018-07-20 16:39 | PROGRESS NOTE ---
DATE: 07/20/2018 SUBJECTIVE: The patient is still having difficulty not having bowel movements at all. She has had numerous laxatives to include Linzess, Dulcolax suppositories, magnesium citrate, Colyte, Fleet's enemas. Still not having great bowel movements. She had 1 small one today and Dr. Carver is seeing the patient now in consultation. OBJECTIVE: Vital Signs: Afebrile. Pulse 72, respirations 20, blood pressure 100/67, O2 saturation on room air 100%. Cardiovascular: RRR. Lungs: Clear. Abdomen: Soft. Active bowel sounds. No mass or organomegaly. Extremities: No calf tenderness, cords or edema. Neurologic: Cranial nerves II-XII are intact. Nonfocal. IMAGING: Yesterday a repeat flat and upright of the abdomen shows large amount of stool in the colon. Last colonoscopy in May of [address] Carver showed diverticulosis, otherwise negative. ASSESSMENT: 1. Profound constipation unresponsive to treatment with large doses of laxatives and peristaltic agents. 2. Asthma exacerbation, resolved. 3. Chronic elevation left hemidiaphragm. 4. Hypertension. 5. Remote pulmonary emboli on chronic anticoagulation. 6. Remote history of breast cancer. PLAN: Will defer treatment to GI at this point. We changed her off of a full diet this morning to NPO until he could see her, now he has placed her on clear liquids. Continue ambulation as she is doing. We are stopping the prednisone at this point. Continue nebulizer treatments. Stop Rocephin. She will be able to go home as soon as she has good bowel movements. We have made adjustments in her medications. Possible discharge tomorrow if she does well with her bowel movement. She has had a small one after a Fleets enema earlier this afternoon. cc: Manny Day MD
--- NOTE | 2018-07-20 17:15 | PULMONOLOGY PROGRESS NOTE ---
DATE: 07/20/2018 SUBJECTIVE: The patient reports she had a small bowel movement earlier today. She has been evaluated by the GI service. OBJECTIVE: Vital Signs: The patient is awake, alert, and conversant. She is without shortness of breath or wheezing. Cardiac: S1-S2. Abdomen: Soft with positive bowel sounds. Extremities: Without edema. IMPRESSION: 68-year-old with: 1. Chronic elevation of the left hemidiaphragm. 2. Asthma. 3. Constipation status post magnesium citrate, Colyte, senna, enemas, and suppositories. 4. Hypertension. 5. History of pulmonary emboli. RECOMMENDATION: 1. Agree with GI evaluation. Hopefully the stool in her gut has become hydrated and will pass. 2. Continue bronchodilators. 3. Agree with steroid taper. 4. Okay for discharge from a pulmonary standpoint. We will sign off and will be will be out this weekend, but if pulmonary issues arise, please contact Dr. Melissa. cc: MD Manny Roque MD
[2018-07-20] MEDS: DITROPAN XL PO SCH (21:56)
[2018-07-21] MEDS: XANAX PO SCH ×4 (02:02→20:46)
[2018-07-21] MEDS: REGLAN IV SCH ×4 (02:40→20:46)
[2018-07-21] MEDS: PATADAY 0.2% OPH SOLUTION BOTH EYES SCH ×3 (07:56→20:46)
[2018-07-21] MEDS: ALDACTAZIDE 25/25 PO SCH ×2 (07:57→11:18)
[2018-07-21] MEDS: COZAAR PO SCH ×2 (07:58→11:20)
[2018-07-21] MEDS: LACTULOSE PO SCH ×2 (07:58→11:19)
[2018-07-21] MEDS: NEXIUM PO SCH ×2 (07:58→11:20)
[2018-07-21] MEDS: FISH OIL CONCENTRATE PO SCH (07:59)
[2018-07-21] MEDS: SINGULAIR PO SCH ×2 (07:59→11:19)
[2018-07-21] MEDS: XARELTO PO SCH (07:59)
[2018-07-21] MEDS: IMDUR PO SCH (07:59)
[2018-07-21] MEDS: ALBUTEROL NEB INH SCH ×5 (08:28→23:22)
[2018-07-21] MEDS: SYMBICORT 160/4.5 MICROGM INHALER INH SCH ×2 (08:40→18:31)
--- NOTE | 2018-07-21 11:52 | PROGRESS NOTE ---
DATE: 07/21/2018 SUBJECTIVE: Patient says she does not feel uncomfortable and she is occasionally passing some gas, but still has not had a good bowel movement. She had very minimal liquid stool after enema yesterday. She has failed to respond to magnesium citrate x2, Dulcolax suppositories x2, Linzess x1, Colyte 4 L x1, MiraLAX, and Reglan. She is not having any shortness of breath now, and says she does not feel uncomfortable. She is ambulating a lot. GI is seeing the patient now and working with her in regard to her bowels. Yesterday, she had another Dulcolax suppository; actually, that is 3 of those she has had since hospitalization, so magnesium citrate x2. She also failed to respond to some Kristel-Colace given to her earlier. She denies social issues bothering her at home, and now she is on Lactulose 15 mL daily as well. She does complain of a vaginal yeast infection. OBJECTIVE: Vital Signs: Afebrile, pulse 53, respirations 16, blood pressure 125/75, O2 saturation on room air 100% CV: RRR without murmur. Lungs: CTA. Abdomen: Soft. Active bowel sounds. No pinpoint tenderness. Extremities: No calf tenderness, cords, or edema. Neuro: Cranial nerves are intact without focal deficits. ASSESSMENT: 1. Pronounced constipation, resistant to treatment, with last colonoscopy in May [address] Che showing diverticulosis only. 2. Asthma exacerbation. 3. Chronic elevation of left hemidiaphragm. 4. Hypertension. 5. Remote pulmonary emboli, on chronic anticoagulation. 6. Remote history of breast cancer. 7. Yeast vaginitis. PLAN: 1. Add Diflucan for the yeast vaginitis. 2. Continue clear liquids, ordered per GI. 3. She is off the prednisone now. 4. Continue nebulizer treatments. 5. We had stopped the Rocephin yesterday. 6. She is ambulating. 7. We will continue lactulose per GI and follow along with them. Appreciate their assistance. cc: Manny Day MD
[2018-07-21] MEDS: DIFLUCAN PO SCH (16:53)
[2018-07-21] MEDS: DITROPAN XL PO SCH (20:46)
[2018-07-22] MEDS: REGLAN IV SCH ×4 (03:06→22:14)
[2018-07-22] MEDS: XANAX PO SCH ×5 (03:06→22:14)
[2018-07-22] MEDS: SYMBICORT 160/4.5 MICROGM INHALER INH SCH ×2 (07:55→19:37)
[2018-07-22] MEDS: ALBUTEROL NEB INH SCH ×5 (07:56→22:46)
[2018-07-22] MEDS: LACTULOSE PO SCH ×2 (08:37→22:14)
[2018-07-22] MEDS: COZAAR PO SCH (08:37)
[2018-07-22] MEDS: PATADAY 0.2% OPH SOLUTION BOTH EYES SCH ×2 (08:37→22:14)
[2018-07-22] MEDS: XARELTO PO SCH (08:37)
[2018-07-22] MEDS: IMDUR PO SCH (08:38)
[2018-07-22] MEDS: SINGULAIR PO SCH (08:38)
[2018-07-22] MEDS: FISH OIL CONCENTRATE PO SCH (08:38)
[2018-07-22] MEDS: NEXIUM PO SCH (08:38)
[2018-07-22] MEDS: ALDACTAZIDE 25/25 PO SCH (08:38)
[2018-07-22] MEDS: DIFLUCAN PO SCH (08:38)
[2018-07-22] MEDS ORDERED: LINZESS PO ONE (10:32)
--- NOTE | 2018-07-22 10:49 | PROGRESS NOTE ---
DATE: 07/22/2018 Vital signs stable with temperature 97.7 degrees, heart rate 65, respirations 20, blood pressure 126/68, O2 saturation on room air of 100%. Record indicates a couple of liquid brown bowel movements. The patient states that it was not much and that she still feels somewhat bloated. Exam reveals abdomen to be soft and nontender. Chest is clear. PLAN: Increase diet to healthy heart, and add Linzess and increase lactulose to 30 mL b.i.d. cc: MD Manny Pena MD
[2018-07-22] MEDS: DITROPAN XL PO SCH (22:14)
[2018-07-23] MEDS: XANAX PO SCH ×4 (01:57→20:10)
[2018-07-23] MEDS: REGLAN IV SCH ×4 (01:57→20:10)
[2018-07-23] MEDS: SYMBICORT 160/4.5 MICROGM INHALER INH SCH ×2 (08:00→19:20)
[2018-07-23] MEDS: ALBUTEROL NEB INH SCH ×5 (08:01→22:58)
[2018-07-23] MEDS: PATADAY 0.2% OPH SOLUTION BOTH EYES SCH ×2 (08:09→20:12)
[2018-07-23] MEDS: LACTULOSE PO SCH ×2 (08:09→20:10)
[2018-07-23] MEDS: ALDACTAZIDE 25/25 PO SCH (08:10)
[2018-07-23] MEDS: NEXIUM PO SCH (08:10)
[2018-07-23] MEDS: FISH OIL CONCENTRATE PO SCH (08:10)
[2018-07-23] MEDS: COZAAR PO SCH (08:10)
[2018-07-23] MEDS: VITAMIN D PO SCH (08:10)
[2018-07-23] MEDS: IMDUR PO SCH (08:10)
[2018-07-23] MEDS: SINGULAIR PO SCH (08:10)
[2018-07-23] MEDS: XARELTO PO SCH (08:10)
[2018-07-23] MEDS: NON-FORMULARY MED (Dulaglutide [Trulicity] 0.75 MG) SQ SCH (11:48)
--- NOTE | 2018-07-23 14:02 | GASTROENTEROLOGY PROGRESS NOTE ---
DATE: 07/23/2018 SUBJECTIVE: The patient is awake, alert, in no acute distress. She states she had a small stool yesterday but nothing significant. She has reported some episodes of vomiting. She has had multiple laxatives. She is currently taking lactulose 30 mL twice daily. OBJECTIVE: Vital Signs: Temperature 98.0 degrees, pulse 68, respirations 20, blood pressure 128/60 today. General: The patient is awake and alert. No acute distress. LABORATORY: From 07/14/2018, WBC 9.99, hemoglobin 11.6, hematocrit 35.8, MCV 88.2, platelets 276,000. Chemistry: Sodium 136, potassium 5.0, chloride 104, CO2 of 22, BUN 32, creatinine 1.2, glucose 151. Abdominal x-ray 07/19/2018 showed large amount of stool throughout the colon. ASSESSMENT AND PLAN: 1. Recent asthma exacerbation. Symptoms have improved. 2. History of pulmonary emboli on chronic coagulation. 3. Constipation. The patient has had multiple laxative without significant cleansing of the colon. Will repeat abdominal x-ray and check electrolytes. Continue laxative regimen. Further plans will be made as needed. I have discussed this case with Dr. Carver. Dictated by JULIA Haynes for Black Carver MD cc: JULIA Russell MD Stephen W. Harbin, MD
[2018-07-23 14:13] LABS: CALCIUM 9.6 mg/dL (8.8-10.2); CREATININE 1.2 mg/dL (0.5-0.9); MAGNESIUM 1.9 mg/dL (1.5-2.7); PHOSPHORUS 2.9 mg/dL (2.7-4.5); POTASSIUM 4.3 mmol/L (3.5-5.1)
--- NOTE | 2018-07-23 14:32 | Diag Imaging Result Doc PS360 ---
KUB ABDOMEN - 07/23/2018 INDICATION: constipation COMPARISON: 07/19/2018 FINDINGS: There is mild constipation of the transverse colon. No bowel obstruction or free air. IMPRESSION: Mild constipation but no acute disease. Electronically signed by Kobi Fletcher 07/23/2018 2:30 PM
[2018-07-23] MEDS: DITROPAN XL PO SCH (20:10)
--- NOTE | 2018-07-23 21:01 | PROGRESS NOTE ---
DATE: 07/23/2018 SUBJECTIVE: I came into the room this afternoon. The patient seemed somewhat tearful. She said a relative had . She denies other stressors other than the constipation, which is bothering her. She does state that she had one bowel movement yesterday. She says she held it for about 3 hours as she had company from her hindu visiting her and then was able to go and have a small bowel movement. OBJECTIVE: General: Well-appearing overall. Cardiovascular: RRR, without murmur. Lungs: CTA. Abdomen: Very soft, active bowel sounds noted. No pinpoint tenderness. Extremities: No edema. Neurologic: Nonfocal. ASSESSMENT: 1. Constipation. 2. Asthma, stable. 3. Chronic elevation of left hemidiaphragm. 4. Hypertension. 5. Chronic anticoagulation secondary to remote pulmonary emboli. 6. Remote history of breast cancer. 7. Yeast vaginitis. PLAN: I wonder if there may be some underlying stressor here that we are not made aware of by the patient. We initially admitted her for asthma, now are working on some significant constipation, but her abdomen seems very soft and her symptoms are again out of proportion to her findings on exam. X-rays did show pronounced constipation. GI is ordering x-rays. We will follow along with their progress. She is on lactulose 30 mL b.i.d. and we are going to give her a daily dose of Linzess 290 mcg daily and we will follow along. She has been upped on her diet to a healthy heart diet per Dr. Mackey yesterday in my absence and we will follow and see how she does. Again, may be some functional component to the difficulties. cc: Manny Day MD
[2018-07-24] MEDS: REGLAN IV SCH ×4 (03:30→21:46)
[2018-07-24] MEDS: XANAX PO SCH ×4 (03:30→21:46)
[2018-07-24] MEDS: LINZESS PO SCH (06:24)
[2018-07-24] MEDS: SINGULAIR PO SCH (09:49)
[2018-07-24] MEDS: NEXIUM PO SCH (09:49)
[2018-07-24] MEDS: FISH OIL CONCENTRATE PO SCH (09:49)
[2018-07-24] MEDS: IMDUR PO SCH (09:49)
[2018-07-24] MEDS: PATADAY 0.2% OPH SOLUTION BOTH EYES SCH (09:49)
[2018-07-24] MEDS: LACTULOSE PO SCH (09:49)
[2018-07-24] MEDS: COZAAR PO SCH (09:49)
[2018-07-24] MEDS: ALDACTAZIDE 25/25 PO SCH (09:49)
[2018-07-24] MEDS: XARELTO PO SCH (09:50)
[2018-07-24] MEDS: ALBUTEROL NEB INH SCH ×5 (10:08→23:06)
[2018-07-24] MEDS: SYMBICORT 160/4.5 MICROGM INHALER INH SCH ×2 (11:09→19:22)
--- NOTE | 2018-07-24 13:54 | GASTROENTEROLOGY PROGRESS NOTE ---
DATE: 07/24/2018 SUBJECTIVE: Patient is awake and alert, in no acute distress. She states she has still not had a good bowel movement. She has had multiple laxatives. She had a KUB yesterday that showed mild constipation in the transverse colon. Electrolytes including calcium, phosphorus and magnesium were normal. OBJECTIVE: Vital Signs: Temperature 98.3 degrees, pulse 62, blood pressure 118/76. General: Patient is awake and alert, no acute distress. Abdomen: Soft with positive bowel sounds. LABORATORY DATA: Chemistry: Sodium 140, potassium 4.3, chloride 102, CO2 26, BUN 14, creatinine 1.2, glucose 196, calcium 9.6, phosphorus 2.9, magnesium 1.9. ASSESSMENT AND PLAN: 1. Constipation. 2. Recent asthma exacerbation, on respiratory management. 3. Other medical problems including hypertension, chronic anticoagulation related to pulmonary emboli, history of breast cancer. PLAN: Continue current laxative regimen. Linzess has been added. I have discussed this case with Dr. Carver. X-ray yesterday showed mild constipation in the transverse colon. Further plans to be made according to patient's progress. Again, I have discussed this case with Dr. Carver. Further plans will be made by him. Saw patient later in the evening, No GI complaints. O/E Abdomen is soft and non tender, Bowel sounds are normal. X-Ray abdomen reviewed and non specific gasses no constipation noted. A: Constipation resolved. Plan: Continue current treatment, doesn't need repeat colonoscopy. From GI point of view she can be discharged and to be followed as out patient. [place] Dictated by JULIA Haynes for Black Carver MD cc: JULIA Russell MD Stephen W. Harbin, MD [facility]
--- NOTE | 2018-07-24 16:43 | PROGRESS NOTE ---
DATE: 07/24/2018 SUBJECTIVE: Patient still has not had a good bowel movement by her report. She has not had any bowel movement lately. No nausea, vomiting. She is eating about 50% of her meals. OBJECTIVE: Afebrile. Vital signs stable.CV: RRR without murmur. Lungs: CTA. Back: No CVA tenderness. Abdomen: Soft. There is mild palpable stool in the upper abdomen consistent with her KUB which showed some transverse constipation fairly mild. Extremities: No calf tenderness, cords or edema. Neurologic: Cranial nerves are intact. LAB DATA: Yesterday done by GI reveals normal BMP, glucose 196, calcium 9.6, phosphorus 2.9, magnesium 1.9. ASSESSMENT: 1. Constipation with symptoms somewhat again out of proportion. 2. Asthma, stable. 3. Chronic elevation of left hemidiaphragm. 4. Hypertension. 5. Chronic anticoagulation secondary to remote pulmonary emboli. 6. History of breast cancer. PLAN: The patient does not want to go home. She is interested in getting more done per GI. For now, continue Linzess and double dose lactulose. I have asked the nurses to monitor her for bowel movement frequency. cc: Manny Day MD
[2018-07-24] MEDS: DITROPAN XL PO SCH (21:46)
[2018-07-25] MEDS: REGLAN IV SCH ×4 (07:21→21:16)
[2018-07-25] MEDS: PATADAY 0.2% OPH SOLUTION BOTH EYES SCH ×3 (07:28→21:18)
[2018-07-25] MEDS: XANAX PO SCH ×4 (07:28→21:15)
[2018-07-25] MEDS: LACTULOSE PO SCH ×3 (07:29→21:17)
[2018-07-25] MEDS: LINZESS PO SCH (07:35)
[2018-07-25] MEDS: ALBUTEROL NEB INH SCH ×5 (07:57→23:08)
[2018-07-25] MEDS: SYMBICORT 160/4.5 MICROGM INHALER INH SCH ×2 (07:57→19:23)
[2018-07-25] MEDS: NEXIUM PO SCH (08:41)
[2018-07-25] MEDS: ALDACTAZIDE 25/25 PO SCH (08:41)
[2018-07-25] MEDS: SINGULAIR PO SCH (08:42)
[2018-07-25] MEDS: FISH OIL CONCENTRATE PO SCH (08:42)
[2018-07-25] MEDS: COZAAR PO SCH (08:42)
[2018-07-25] MEDS: IMDUR PO SCH (08:42)
[2018-07-25] MEDS: XARELTO PO SCH (08:42)
--- NOTE | 2018-07-25 08:51 | PROGRESS NOTE ---
DATE: 07/25/2018 SUBJECTIVE: Patient is stable. She has still not had a bowel movement. She has not had any abdominal pain. She has been walking around the halls vigorously without difficulty notably. OBJECTIVE: Vitals: Afebrile. Vital signs stable. CARDIOVASCULAR: Regular rhythm and rate without murmur. Lungs: Computed tomography angiography. Abdomen: Soft, active bowel sounds. Nontender, nondistended. Extremities: No calf tenderness, cords or edema. Neurologic: Cranial nerves 2-12 are intact. Nonfocal. DIAGNOSTIC DATA: KUB on 07/23 revealed mild constipation, but otherwise, no acute disease. ASSESSMENT: 1. Constipation, mild per exam and by KUB. 2. Asthma, stable. 3. Chronic left hemidiaphragm elevation. 4. Hypertension. 5. Chronic anticoagulation secondary to remote pulmonary emboli. 6. Remote history of breast cancer. PLAN: Patient remains on 290 mcg daily Linzess and double dose lactulose daily. She is ambulating well. If Dr. Carver and the Gastroenterology Team do not have further plans for endoscopies, it may be that we would be able to try her outpatient discharge. I think she is ambulating around quite well. Sometimes she may be off the floor for a period of time. We will evaluate her back in the office if that is okay with Gastroenterology. If they plan on endoscopy, we will keep her. cc: Manny Day MD
--- NOTE | 2018-07-25 18:09 | GASTROENTEROLOGY PROGRESS NOTE ---
DATE: 07/25/2018 SUBJECTIVE: The patient is awake and alert, in no acute distress. She states she has still not had a good bowel movement. She really denies abdominal pain. Patient had an abdominal x-ray on 07/23/2018 that showed only mild constipation in the transverse colon with no bowel obstruction or free air. Patient had her last colonoscopy on 05/31/2017. Findings showed mild diverticulosis in the sigmoid colon. Otherwise normal colonoscopy. OBJECTIVE: Vital Signs: Temperature 97.9 degrees, pulse 94, respirations 19, blood pressure 125/66. General: Patient is awake and alert, no acute distress. Abdomen: Soft, nontender. Positive bowel sounds. DIAGNOSTIC STUDIES: Hematology: WBC 9.99 hemoglobin 11.6, hematocrit 35.8. Chemistry: Sodium 140, potassium 4.3, chloride 102, CO2 of 26, BUN 14, creatinine 1.2, glucose 196. ASSESSMENT AND PLAN: 1. Recent asthma exacerbation. On respiratory management and is stable. 2. Constipation. Patient states she has only had a small stool after having multiple laxatives in the hospital. Continue current laxative regimen, including Linzess and lactulose. She has had a colonoscopy in the last year with findings of diverticulosis. Otherwise normal colonoscopy. I have discussed this case with Dr. Carver. Further plans will be made by him. Dictated by JULIA Haynes for Black Carver MD cc: JULIA Russell MD Stephen W. Harbin, MD
[2018-07-25] MEDS: DITROPAN XL PO SCH (21:16)
[2018-07-26] MEDS: REGLAN IV SCH ×4 (04:18→21:34)
[2018-07-26] MEDS: XANAX PO SCH ×4 (04:19→21:34)
[2018-07-26] MEDS: PATADAY 0.2% OPH SOLUTION BOTH EYES SCH ×2 (08:18→21:34)
[2018-07-26] MEDS: SINGULAIR PO SCH (08:19)
[2018-07-26] MEDS: LACTULOSE PO SCH ×2 (08:19→21:34)
[2018-07-26] MEDS: LINZESS PO SCH (08:19)
[2018-07-26] MEDS: FISH OIL CONCENTRATE PO SCH (08:19)
[2018-07-26] MEDS: NEXIUM PO SCH (08:19)
[2018-07-26] MEDS: XARELTO PO SCH (08:19)
[2018-07-26] MEDS: ALDACTAZIDE 25/25 PO SCH (08:20)
[2018-07-26] MEDS: IMDUR PO SCH (08:20)
[2018-07-26] MEDS: COZAAR PO SCH (08:20)
--- NOTE | 2018-07-26 09:27 | Diag Imaging Result Doc PS360 ---
EXAM: KUB ABDOMEN 07/26/2018 HISTORY: constipation TECHNIQUE: KUB COMMENT: There is stool present throughout the colon. Stomach and small bowel are not distended. There has been previous cholecystectomy and fusion of the lower lumbar spine. IMPRESSION: Constipation. Electronically signed by Gurvinder Mtz 07/26/2018 9:24 AM
[2018-07-26] MEDS: ALBUTEROL NEB INH SCH ×5 (10:00→23:50)
[2018-07-26] MEDS: SYMBICORT 160/4.5 MICROGM INHALER INH SCH ×2 (11:36→20:03)
[2018-07-26] MEDS ORDERED: FLEET ENEMA PR ONE (12:43)
--- NOTE | 2018-07-26 13:21 | PROGRESS NOTE ---
DATE: 07/26/2018 SUBJECTIVE: The patient still has not had a bowel movement. She has passed gas twice she said this morning. She went down for KUB, which still shows a large amount of stool throughout the colon, but no air-fluid levels. She has been ambulatory. Her diet is decreasing; she did not eat much breakfast OBJECTIVE: Vital Signs: Afebrile, pulse 101, respirations 15, blood pressure 101/65. CV: RRR without murmur. Lungs: CTA. Abdomen: Mild distention. Active bowel sounds. No point tenderness. Back: No CVA tenderness. Extremities: No calf tenderness, cords or edema. Neurologic: Cranial nerves 2-12 are intact. X-RAYS: Again, KUB showing pronounced constipation. ASSESSMENT: 1. Persistent constipation despite large amounts of laxatives. 2. Asthma. 3. Chronic left hemidiaphragm elevation. 4. Hypertension. 5. Chronic anticoagulation secondary to remote pulmonary emboli. 6. History of breast cancer. PLAN: We are going to continue daily Linzess at a high dose. Continue double- dose lactulose. Yesterday, she refused her morning dose. We discussed that; she was fearful she would go home and have it "kick in." Otherwise, we will continue the lactulose 30 mL and will give her another Fleets enema, ambulate patient. Appreciate Dr. Carver and his group for seeing the patient and still looking for any further recommendations they have. cc: Manny Day MD [facility]
[2018-07-26] MEDS: MILK OF MAGNESIA PO SCH ×2 (14:51→21:34)
--- NOTE | 2018-07-26 18:13 | GASTROENTEROLOGY PROGRESS NOTE ---
DATE: 07/26/2018 SUBJECTIVE: The patient was sitting up in the bed, resting comfortably. She tells me that she is feeling fine, but she has not been able to pass any flatus since yesterday. However, she denies any abdominal pain or abdominal cramps. Her appetite is good. She is eating well, but she is continued to be concerned about her flatus. EXAMINATION: On exam, her abdomen is full. It is soft, it is nontender. Bowel sounds are audible. LABORATORIES: Reviewed. X-ray of the abdomen reviewed which shows nonspecific gas pattern with some stool on the left side of the colon. IMPRESSION: Constipation, has gotten better but not to her satisfaction. On top of all the above medication that she is on, I will give her a couple doses of milk of magnesia. I will give her 30 mL now and repeat 30 mL in the morning to get her cleaned out, and then she can continue on a combination of lactulose and Linzess. From a GI perspective, again, she can be discharged where her constipation can be managed as an outpatient, again depending on other medical issues. cc: MD Manny Mello MD
[2018-07-26] MEDS: DITROPAN XL PO SCH (21:34)
[2018-07-27] MEDS: REGLAN IV SCH ×2 (02:44→10:09)
[2018-07-27] MEDS: XANAX PO SCH ×2 (02:44→10:09)
[2018-07-27] MEDS: LINZESS PO SCH ×2 (05:29→07:20)
[2018-07-27] MEDS: SYMBICORT 160/4.5 MICROGM INHALER INH SCH (07:54)
[2018-07-27] MEDS: ALBUTEROL NEB INH SCH ×2 (07:54→11:26)
--- NOTE | 2018-07-27 09:14 | PROGRESS NOTE ---
DATE: 07/27/2018 SUBJECTIVE: The patient says she has passed gas three times, and apparently was able to hold the enema for about 2 hours. She had a couple of flakes of stool but not a great stool. She has continued to eat very well. No problem with her appetite. No abdominal pain. X-rays do show some constipation, but showed no air fluid levels. No signs of blockage. Dr. Che has been working with the patient as well and he gave her a couple doses of milk of magnesia yesterday. She remains on lactulose 30 mL b.i.d. and Linzess 290 mcg daily. OBJECTIVE: Afebrile. Vital signs stable.CV: RRR. No murmur. Lungs: CTA. Back: No CVA tenderness. Abdomen: Soft. Active bowel sounds. There is mild distention and some palpable stool. Very minimal tenderness down at the suprapubic area today. Extremities: No calf tenderness, cords or edema. Neurologic: Cranial nerves 2-12 are intact. Nonfocal. ASSESSMENT AND PLAN: I spoke with her [id number] by phone as they were concerned about her being in the hospital for long period of time. She says the patient has been under some stress as she is having some repair work done on her home that has come to a halt just the last couple of days while she has been in the hospital, and has been being worked on. Notably, her daughter-in- law and son live in [place], and they have asked her to come there to stay while they do the work on her home. 1. Constipation. 2. Asthma. 3. Chronic left hemidiaphragm elevation. 4. Hypertension. 5. Chronic anticoagulation secondary to remote pulmonary embolus. 6. History of breast cancer. PLAN: Patient has had colonoscopy within the last year. Continue lactulose and Linzess. We will give her Dulcolax suppository x1. Notably, she was in the restroom when I came in the room today. We will continue to monitor the progress with the nursing staff. Dr. Che has signed off on the case, and he thinks she can go home to finish up constipation treatment at home so we will try to give her the Dulcolax. Monitor her progress with ambulation today, and discharge later this evening if she is doing well. cc: Manny Day MD
[2018-07-27] MEDS ORDERED: DULCOLAX PR ONE (09:39)
[2018-07-27] MEDS: MILK OF MAGNESIA PO SCH (10:09)
[2018-07-27] MEDS: PATADAY 0.2% OPH SOLUTION BOTH EYES SCH (10:09)
[2018-07-27] MEDS: LACTULOSE PO SCH (10:09)
[2018-07-27] MEDS: NEXIUM PO SCH (10:09)
[2018-07-27] MEDS: FISH OIL CONCENTRATE PO SCH (10:10)
[2018-07-27] MEDS: SINGULAIR PO SCH (10:10)
[2018-07-27] MEDS: ALDACTAZIDE 25/25 PO SCH (10:10)
[2018-07-27] MEDS: XARELTO PO SCH (10:10)
[2018-07-27] MEDS: IMDUR PO SCH (10:10)
[2018-07-27] MEDS: COZAAR PO SCH (10:10)
[2018-07-27 11:58] VITALS: BP 98/65
--- NOTE | 2018-07-27 14:53 | PROGRESS NOTE ---
DATE: 07/27/2018 SUBJECTIVE: The patient is eating lunch vigorously, and she says her car is being serviced and it will be back before she can go home at 5:00 this evening. Malodorous smell in the room notably. The patient doing well. Soft abdomen. We will discharge home on double-dose lactulose and Linzess daily. Follow up with me in 3 days in my office. cc: Manny Day MD
--- NOTE | 2018-07-27 16:55 | GASTROENTEROLOGY PROGRESS NOTE ---
DATE: 07/27/2018 SUBJECTIVE: Patient is awake and alert, in no acute distress. She has friends at the bedside. She states she has had very small flakes of stool and she did pass some gas. She had an enema yesterday and a Dulcolax suppository today, also milk of magnesia was added, along with lactulose and Linzess. The patient denies significant pain. OBJECTIVE: Vital Signs: Temperature 97.4, pulse 87, respirations 18, blood pressure 98/65. General: Patient is awake and alert, in no acute distress. LABORATORY: Chemistry: Sodium 140, potassium 4.3, chloride 102, CO2 26, BUN 14, creatinine 1.2, glucose 196. ASSESSMENT AND PLAN: 1. Constipation. 2. Recent asthma exacerbation has resolved. 3. Hypertension. 4. Chronic anticoagulation secondary to history of pulmonary embolism. 5. History of breast cancer. Continue current laxative regimen she has had and added a milk a magnesia dose yesterday and today. Also, had a Dulcolax suppository today. Dr. Day is following. He may discharge her depending on her response. As far as GI is concerned, she can be discharged to follow up with us as an outpatient for further management. She had a colonoscopy in May 2017 that was normal except for diverticulosis. Will continue to follow and further plans will be made as needed. I have discussed this case with Dr. Carver. Dictated by JULIA Haynes for Black Carver MD cc: JULIA Russell MD Stephen W. Harbin, MD
[2018-07-27] MEDS ORDERED: DULCOLAX PR SCH (21:00)
--- NOTE | 2018-08-26 21:47 | DISCHARGE SUMMARY ---
ADMISSION DATE: 07/10/2018 DISCHARGE DATE: 07/27/2018 DIAGNOSES: 1. Severe constipation resistant to treatment. 2. Asthma stable. 3. Chronic left hemidiaphragm elevation. 4. Hypertension. 5. Chronic anticoagulation secondary to remote history of pulmonary embolism. 6. History of breast cancer. 7. Yeast vaginitis . CONSULTANTS: Dr. John Hoffmann pulmonology, Dr. Jeffrey Su cardiology, Dr. Black Carver gastroenterology. PROCEDURES: 1. Chest x-ray done 07/10/2018 no acute abnormality. 2. Echocardiogram done 07/13 revealing mild MR. EF of 65% with normal wall motion otherwise normal. 3. Repeat chest x-ray done 07/13 no acute abnormality. 4. CT chest done 07/13 revealing chronic elevation left hemidiaphragm with minimal bibasilar segmental atelectasis otherwise unremarkable. 5. Abdominal x-ray 07/15 revealing mild to moderate constipation. 6. Abdominal x-ray done 07/19 revealing constipation, no major change. 7. Abdominal x-ray done 07/23 revealing mild constipation to the transverse colon otherwise no acute disease. Abdominal x-ray done 07/26/2018 revealing stool present throughout the colon, no stomach or small bowel distention. REASON FOR ADMISSION AND HOSPITAL COURSE: The patient is a 68-year-old black female followed in my medical practice. She is also followed by Cardiology and Dr. Su saw the patient as well as Dr. Hoffmann initially in the hospitalization. She was complaining of some cough productive of yellow phlegm. She denied any fever. She has remote history of pulmonary embolism. White count was 5, hemoglobin 12.2. Chest x-ray clear. EKG sinus tachycardia with first-degree AV block. She was admitted started on IV antibiotics, IV Solu-Medrol, breathing treatments and patient remained on anticoagulation as she has been on this long-term. She was thought to have some bronchitis, some possible panic attack/anxiety, hypokalemia was repleted and that was mild. Echocardiogram was done 07/13. Cardiology saw the patient and agreed with the treatment and he reviewed her previous history to include the pulmonary embolism and previous cardiac catheterization which was negative, cardiac enzymes and troponins were done and they were negative. He deferred treatment to Dr. Hoffmann who was also seeing the patient. He recommended CT scan the thorax with bibasilar atelectasis noted. By 07/14 patient was begun on weaning of steroids. She remained on anxiolytics, bronchodilators, antibiotics. Cardiology on 07/14 had no further recommendations and deferred treatment to Dr. Hoffmann, by 06/2023 the patient had developed some constipation and magnesium citrate was given and continued weaning of the steroids, by 07/16 I had returned and took the patient over from Dr. Lo' care and as she was still having some constipation we added MiraLAX daily and Dulcolax suppositories x1. She remained on IV Rocephin, low-dose oral steroids, albuterol nebulizer treatments, resumed her Symbicort and Singulair, continued her Imdur, losartan and diuretics, by 07/17 she has still not had a bowel movement so we gave her fleets enema and we ambulated the patient continued her on her anticoagulant, by 07/18 we changed from MiraLAX to Colyte by 07/19 reviewed her colonoscopy results which she had just over a year ago per Dr. Carver and gave her more Dulcolax suppositories and continue ambulation, on 07/[address] Carver also to see the patient and we placed her NPO and then on clear liquids try to rest her bowels. She had a small bowel movement after another fleet enema, by 07/21 she developed yeast vaginitis we placed her on some Diflucan. She was ambulating well and we had weaned her off the prednisone completely. She maintained on clear liquids, she had been placed on lactulose per GI, by 07/22 Dr. Mackey increased her back to healthy heart diet and added Linzess increased the lactulose 30 mL b.i.d. KUB on 07/23 still showed constipation and Dr. Carver continued to follow and recommended continuation of the laxative regimen, 07/24 he discussed he did not think she needed additional colonoscopy at that point on 07/25 patient remained on Linzess and lactulose as recommended by Dr. Carver by 07/26 she had improved slightly with her constipation but not to her satisfaction. She was given some milk of magnesia again in addition to Lactulose and Linzess combination by 07/27 gave her additional Dulcolax suppositories and Dr. Carver signed off the case. He thought she was well enough to go home and patient was willing go home. She did have some social issues where there were some work being done on her home as I talked to her daughter in detail about her situation, at any rate she was able to be discharged to follow up in my office within 1 week. DISCHARGE MEDICATIONS: Will be Singulair 10 mg p.o. daily, Pataday 1 drop both eyes b.i.d., Symbicort 160 two puffs daily, vitamin D 50,000 international units p.o. daily now should be once weekly, albuterol MDI 2 puffs q.4 hours, Xarelto 20 mg p.o. daily, Trulicity 0.75 mg once weekly subcu, Nexium 40 mg p.o. daily , [place]-3 fatty acids 1 caplet p.o. daily, she also was on Aldactazide 25/25 one p.o. q.a.m., Cozaar 100 mg p.o. daily, duo nebs q.6 hours, Imdur 60 mg p.o. q.a.m., lactulose 30 mL p.o. b.i.d., Linzess 290 mcg p.o. daily. She will follow up in my office in 1 week. cc: Manny Day MD
== END 2018-07-27 15:14 | disposition home or self-care (01) | DRG 203 ==
LOC: ED 15:31 → 4N 19:15
PROVIDERS: ADMIT Family Medicine; ATTEND Family Medicine
CPT/HCPCS: 71020; 71046; 71260; 74000; 74018; 74019; 74020; 77063; 77067; 80048; 80053; 81001; 82550; 82805; 83735; 83880; 84100; 84484; 85025; 85379; 86140; 93005; 93010; 93306; 94640; 94760; 94761; 96374; 99285; A9270; G0202; J0696; J2405; J2765; J2930; J7030; J7506; J7512; Q9967